=== PATIENT | female | born 1995 ===

== ENCOUNTER → 2020-08-01 08:42 | Outpatient (BNVA) | payer OTHER, SELFPAY | PROVIDERS: PCP Internal Medicine; Visit Provider Nurse Practitioner | DX: R19.7 Diarrhea, unspecified (principal); R10.9 Unspecified abdominal pain; Z34.90 Encounter for supervision of normal pregnancy, unspecified, unspecified trimester | CPT/HCPCS: 99212 ==

== ENCOUNTER → 2021-02-17 09:15 | Outpatient (BNVA) | payer OTHER, SELFPAY | PROVIDERS: PCP Internal Medicine; Visit Provider Nurse Practitioner ==

== ENCOUNTER 2021-10-13 14:56 | Outpatient (REF) | payer OTHER, SELFPAY ==
[2021-10-13 16:37] LABS: Eosinophils Absolute Auto 0.1 X10*3/uL (0.0-0.4); Eosinophils Percent Auto 0.6 % (0-4); Hemoglobin 12.7 g/dl (12.0-16.0); Imm Gran Abs Auto 0.02 X10*3/uL (0.00-0.03); Imm Gran Pct Auto 0.2 % (0.0-0.4); MANUAL DIFF FLAG SCAN; Monocytes Absolute Auto 0.6 X10*3/uL (0.1-1.2); PLT CLUMP 1; Red Cell Distribution Width 14.6 % (11.0-16.0); SCAN SMEAR FLAG 1
[2021-10-13 16:39] LABS: Basophils Percent Auto 0.1 % (0-2); Hematocrit 40.8 % (37.0-47.0); Lymphocytes Absolute Auto 2.8 X10*3/uL (1.2-4.9); Mean Corpuscular HGB Conc 31.1 g/dl (31.0-35.0); Mean Corpuscular Hemoglobin 26.5 pg (27.0-33.0); Monocytes Percent Auto 7.6 % (2-11); Neutrophils Absolute Auto 4.6 x10*3/uL (2.0-8.3); Neutrophils Percent Auto 56.5 % (45-73)
[2021-10-13 16:43] LABS: PLT ABN DIST 1
[2021-10-13 16:47] LABS: Alanine Aminotransferase 21 U/L (0-31); Albumin Level 3.8 g/dL (3.5-5.0); Alkaline Phosphatase 88 U/L (39-117); Anion Gap 11 (12-20); Aspartate Amino Transferase 16 U/L (5-31); Bilirubin Total 0.5 mg/dL (0.0-1.0); Blood Urea Nitrogen 11 mg/dL (9-16); Calcium 9.1 mg/dL (8.4-10.2); Carbon Dioxide 24 mmol/L (22-29); Chloride 107 mmol/L (96-108); Cholesterol 158 mg/dL; Estimated Glomerular Filt Rate > 60; Glucose Random 91 mg/dL (60-115); HDL Cholesterol 44 mg/dL; LDL Cholesterol Calculated 72 mg/dl; Magnesium 1.8 mg/dL (1.6-2.6); Potassium 4.2 mmol/L (3.3-5.1); Sodium 138 mmol/L (135-145); Total Protein 6.6 g/dL (6.5-8.0); Triglycerides 210 mg/dL
[2021-10-13 16:57] LABS: White Blood Count 8.1 X10*3/uL (4.8-10.8)
[2021-10-13 16:58] LABS: SLIDE REVIEW VERIFIED
[2021-10-13 17:12] LABS: Free T4 (Free Thyroxine) 0.93 ng/dL (0.71-1.85); Thyroid Stimulating Hormone 2.64 uIU/mL (0.32-4.0); Vitamin D 25-OH Total 20.1 ng/mL (>30)
[2021-10-13 17:18] LABS: Folate 14.4 ng/mL (> or = 4.0); Vitamin B12 326 pg/mL (200-900)
[2021-10-16 04:14] LABS: HBS Num1 50.52 mIU/mL (0-7.99); HBsAGNum1 0.27 S/CO (0.00-0.99); HIV AB/AG Nonreactive (Nonreactive); HIV Num 1 0.13 S/CO (0.00-0.99); Hepatitis B Core Antibody Nonreactive (Nonreactive); Hepatitis B Surface Antigen Negative (Negative); ~Hepatitis B Surface Antibody REACTIVE (Nonreactive)
== END 2021-10-13 14:57 | disposition home or self-care (01) ==
LOC: HO.HMGCLDS 14:56
PROVIDERS: Absent Provider Internal Medicine; PCP Internal Medicine; Visit Provider Internal Medicine
DX: Z01.84 Encounter for antibody response examination (principal); Z11.4 Encounter for screening for human immunodeficiency virus [HIV]; R19.7 Diarrhea, unspecified; E78.00 Pure hypercholesterolemia, unspecified; W27.3XXA Contact with needle (sewing), initial encounter
CPT/HCPCS: 36415; 80053; 80061; 82306; 82607; 82746; 83735; 84439; 84443; 85025; 86704; 86706; 87340; 87389

== ENCOUNTER 2023-11-05 08:08 | Outpatient (AMB) | payer OTHER, SELFPAY ==
[2023-11-05 08:15] VITALS: BP 130/82; PULSE 77; O2SAT 98; BMI 50.9
--- NOTE | 2023-11-05 08:15 | MHC.PC.OV ---
Vital Signs 11/05/23 08:15 Height 5 ft 7 in Weight 147.418 kg BMI 50.9 BP 130/82 Blood Pressure Location Lt brachial Position Sitting Pulse 77 Pulse Source Pulse Oximeter Pulse Oximetry (%) 98 Oxygen Delivery Method Room Air Intake Visit Reasons: PE Allergies No Known Allergies Allergy (Verified 11/05/23 08:16) Medication List - Last Reconciled 11/05/23 by Eron Ramsey MD alprazolam 0.25 mg PO DAILY PRN sumatriptan succinate (Imitrex) 50 mg PO QD prn CHRISTIANSON PRN; Tobacco use date assessed: 11/05/23 Dental Screening Dental Screen Date: 11/05/23 Did you have a dental visit in the last 12 months?: Yes Did you have a dental problem in the last 6 months where you did not have access to dental care?: No Was dental information given to patient?: Patient has dentist HPI PE HPI Details 28-year-old morbidly obese female with hypertriglyceridemia asthma generalized anxiety disorder and major depression coming in for physical exam. Last seen in 10/2022. watery stools intermittently seen GI, eat with no schedule, no nausea no vomiting no chest pains no bladder symptoms. [facility] Medical History (Updated 11/05/23 @ 08:51 by Eron Ramsey MD) Diarrhea Obesity Depression Abdominal cramping Surgical History (Updated 11/05/23 @ 08:34 by Eron Ramsey MD) H/O tubal ligation History of ankle surgery Family History (Updated 11/05/23 @ 08:35 by Eron Ramsey MD) Mother IBS (irritable bowel syndrome) Brother IBS (irritable bowel syndrome) Maternal Aunt Colon cancer Father No problems noted. Maternal Grandmother Breast cancer Social History Housing: Apartment Alcohol intake: never Patient Tobacco Use Status: Never used Tobacco e-Cigarette/Vaping Use: Never Used Second Hand Smoke Exposure: No Current occupational status: employed Cognitive needs: No Hearing needs: No Vision needs: No Questionnaire PHQ-9 Over the last 2 weeks, how often have you been bothered by any of the following problems? 1. Little interest or pleasure in doing things: more than half the days 2. Feeling down, depressed, or hopeless: more than half the days 3. Trouble falling or staying asleep, or sleeping too much: more than half the days 4. Feeling tired or having little energy: more than half the days 5. Poor appetite or overeating: several days 6. Feeling bad about yourself - or that you are a failure or have let yourself or your family down: not at all 7. Trouble concentrating on things, such as reading the newspaper or watching television: not at all 8. Moving or speaking so slowly that other people could have noticed. Or the opposite - being so fidgety or restless that you have been moving around a lot more than usual: not at all 9. Thoughts that you would be better off or of hurting yourself in some way: not at all Total score: 9 Depression Screening Interpretation: Positive Depression Screening Done: Yes 59712 - PHQ-9 Billing: Yes Source: Developed by Drs. Eric Goodson, Marjorie Wilcox, Kelvin Sosa and colleagues, with an educational paulino from [employer]. Thrive Questionnaire Date Thrive assessed: 11/05/23 I am a: Patient What is your living situation today?: I have a steady place to live Within the past 12 months, did the food you bought not last and you didn't have the money to get more?: Never true Within the past 12 months, did you worry whether your food would run out before you got money to buy more?: Never true Do you have trouble paying for medicines?: No Do you have trouble getting transportation to medical appointments?: No Do you have trouble paying your heating and electricity bill?: No Do you have trouble taking care of your child, family member or friend?: No Do you have trouble with day-to-day activities such as bathing, preparing meals, shopping, managing finances, etc.?: No Are you currently unemployed and looking for a job?: No Are you interested in more education?: No Currently or been in a relationship where the following occur: No concerns reported THRIVE Score: 0 AUDIT C Alcohol Use Questionnaire (AUDIT-C) 1. How often do you have a drink containing alcohol?: Never 3. How often do you have six or more drinks on one occasion?: Never Total Score: 0 MARIO-7 AMB Questionnaire MARIO-7 Date MARIO - 7 assessed: 11/05/23 Feeling nervous, anxious, or on edge: 0 = Not at all Not being able to stop or control worryin = Not at all Worrying too much about different things: 0 = Not at all Trouble relaxin = Not at all Being so restless that it is hard to sit still: 0 = Not at all Becoming easily annoyed or irritable: 0 = Not at all Feeling afraid as if something awful might happen: 0 = Not at all Total MARIO-7 score (0-4 normal; 5-9 mild; 10-14 moderate; 15-21 severe): 0 Source: Developed by Drs. Eric Goodson, Marjorie Wilcox, Kelvin Sosa and colleagues, with an educational paulino from [employer]. MARIO-7 Assessment Billing MARIO-7 Assessment Tool: MARIO-7 Assessment 85305 Review of Systems Const Denies poor appetite and Denies weakness Eyes Denies no additional complaints ENT Reports Normal hearing present, Denies dizziness, Denies nasal congestion, Denies tinnitus and Denies sore throat Card Denies chest pain, Denies syncope, Denies rapid heart rate and Denies dyspnea Resp Denies cough and Denies dyspnea GI Denies change in stool character, Reports constipation, Denies diarrhea, Denies nausea and Denies vomiting Denies urinary frequency, Denies difficulty voiding and Denies dysuria Neuro Reports Normal hearing present, Denies confusion, Denies dizziness, Denies syncope and Denies weakness Psych Denies confusion Physical exam (Primary Care) Vital Signs: Last Vital Signs Pulse 77 11/05/23 08:15 BP 130/82 11/05/23 08:15 Pulse Ox 98 11/05/23 08:15 Oxygen Delivery Method Room Air 11/05/23 08:15 BMI result Body Mass Index 50.9 Tobacco/Smoking Status: Tobacco use Status Tobacco use date assessed 11/05/23 11/05/23 08:19 Patient Tobacco Use Status Never used Tobacco 11/05/23 08:19 e-Cigarette/Vaping Use Never Used 11/05/23 08:19 PHQ-9: PHQ-9 Score PHQ-9: Total score 9 11/05/23 08:32 Depression Screening Interpretation: Positive Thrive Assessment: Date of Thrive Assessment Date Thrive assessed 11/05/23 11/05/23 08:19 Currently or been in a relationship where the following occur: No concerns reported Const General: No confusion Orientation/consciousness: No confusion HENMT Head: Yes normocephalic Ears: external ears normal and TM's normal bilaterally Face and sinus: Yes normal facial exam Mouth: moist mucous membranes Throat: Yes tonsils normal Eyes Conjunctivae: conjunctivae normal Pupils: Equal, round and reactive pupils present and Pupil accommodation reflex normal Direct Ophthalmoscopy: normal light reflex Neck Neck: No lymphadenopathy Thyroid: Thyroid normal Chest Chest palpation & inspection: normal inspection of the chest Resp Effort & Inspection: normal respiratory effort and no audible wheezes Auscultation: clear to auscultation bilaterally, no crackles, no wheezes and lung sounds not diminished Cardio Rate: regular rate Rhythm: regular rhythm Peripheral pulses: radial pulses present and dorsalis pedis present GI Palpation (GI): no masses Auscultation: normal bowel sounds and normoactive bowel sounds Rectal Exam - Female: deferred Skin General skin exam: no rashes or lesions noted Rashes: no rashes Neuro General: No confusion Cranial nerves: Yes Equal, round and reactive pupils present and Yes Normal hearing present Cognition (Neuro): normal cognition Gait exam (Neuro): Normal gait present Motor exam (neuro): 5/5 motor strength present throughout Deep tendon reflexes (DTR's): Right brachioradialis reflex intensity grade: 2+, Left brachioradialis reflex intensity grade: 2+, Right patellar reflex intensity grade: 2+ and Left patellar reflex intensity grade: 2+ Extrem General: No edema Immunizations Boostrix Tdap 2.5 Lf unit-8 mcg-5 Lf/0.5 mL intramuscular syringe Performing Provider: Eron Ramsey MD [facility] Administered by: Amna Hudson CMA on 11/05/23 08:59 Dose Route Admin Location Dispensed Lot Number Expiration Date [employer] Qualified 0.5 mL IM Left Deltoid 0.5 mL [id number] 12/05/25 47904-273-27 [employer] VIS Given Date VIS Provided VIS Publication Date 11/05/23 Single Vaccine 20 Eligibility Eligibility Date Funding Source Not [facility] Eligible 11/05/23 Private Assessment and Plan Assessment & Plan (1) Annual physical exam: Code(s): Z00.00 - Encounter for general adult medical examination without abnormal findings Plan: Patient is advised to eat healthy, keep well hydrated, keep active and have adequate sleep. (2) Asthma: Code(s): J45.909 - Unspecified asthma, uncomplicated Plan: Stable and not requiring any inhaler (3) Morbid obesity with BMI of 50.0-59.9, adult: Code(s): E66.01 - Morbid (severe) obesity due to excess calories; Z68.43 - Body mass index [BMI] 50.0-59.9, adult Plan: Diet and exercise (4) Major depression: Code(s): F32.9 - Major depressive disorder, single episode, unspecified Plan: Patient has been stable and declined any referral for counseling services (5) Hypertriglyceridemia: Code(s): E78.1 - Pure hyperglyceridemia Plan: Avoid fried foods, chicken skin, eggs, butter margarine, pastries and meat. Be it pork or beef they have a lot of cholesterol LDL goal of less than 130 and triglyceride of less than 150 (6) Migraine: Code(s): G43.909 - Migraine, unspecified, not intractable, without status migrainosus Plan: Continue with medication as needed (7) Bilateral hand numbness: Code(s): R20.0 - Anesthesia of skin Plan: Discussed about the mechanism of the numbness and declined any testing for now (8) IBS (irritable bowel syndrome): Code(s): K58.9 - Irritable bowel syndrome without diarrhea Plan: Patient has been referred to Gastroenterology and discussed about trial of eliminating dairy products. Discussed about eating properly discussed about eating regularly with healthy foods. Keeping well hydrated Orders: Orders Comprehensive Met. Panel Today E66.01 - Morbid (severe) obesity due to excess calories, Z68.43 - Body mass index [BMI] 50.0-59.9, adult Free T4 (Free Thyroxine) Today E66.01 - Morbid (severe) obesity due to excess calories, Z68.43 - Body mass index [BMI] 50.0-59.9, adult Thyroid Stimulating Hormone Today E66.01 - Morbid (severe) obesity due to excess calories, Z68.43 - Body mass index [BMI] 50.0-59.9, adult UA w Microscopic Today E66.01 - Morbid (severe) obesity due to excess calories, Z68.43 - Body mass index [BMI] 50.0-59.9, adult Hemoglobin A1c Today E66.01 - Morbid (severe) obesity due to excess calories, Z68.43 - Body mass index [BMI] 50.0-59.9, adult Complete Blood Count Auto Diff Today E66.01 - Morbid (severe) obesity due to excess calories, Z68.43 - Body mass index [BMI] 50.0-59.9, adult Vitamin B12 and Folate Today E66.01 - Morbid (severe) obesity due to excess calories, Z68.43 - Body mass index [BMI] 50.0-59.9, adult Lipid Panel Today E66.01 - Morbid (severe) obesity due to excess calories, E78.00 - Pure hypercholesterolemia, unspecified, Z68.43 - Body mass index [BMI] 50.0-59.9, adult Vitamin D 25-OH Total Today E66.01 - Morbid (severe) obesity due to excess calories, Z68.43 - Body mass index [BMI] 50.0-59.9, adult TDaP Immunization Today Z23 - Encounter for immunization Referrals Gastroenterology Referral K58.9 - Irritable bowel syndrome without diarrhea Medications: New Boostrix Tdap (diphth,pertus(acell),tetanus) 0.5 mL IM ONCE 0.5 mL 0RF NS Z23 - Encounter for immunization Coding Level of Care Code Est Pt Prev Care 18-39y([id number]) Diagnoses Annual physical exam Z00.00 Asthma J45.909 Morbid obesity with BMI of 50.0-59.9, adult E66.01; Z68.43 Major depression F32.9 Hypertriglyceridemia E78.1 Migraine G43.909 Bilateral hand numbness R20.0 IBS (irritable bowel syndrome) K58.9 Additional Codes MARIO-7 Assessment Billing - MARIO-7 Assessment Tool: MARIO-7 Assessment 49863 ([id number])
== END 2023-11-05 09:05 | disposition home or self-care (01) ==
PROVIDERS: PCP Internal Medicine; Visit Provider Internal Medicine
DX: Z23 Encounter for immunization (principal); Z00.00 Encounter for general adult medical examination without abnormal findings; J45.909 Unspecified asthma, uncomplicated; E66.01 Morbid (severe) obesity due to excess calories; Z68.43 Body mass index [BMI] 50.0-59.9, adult; F32.9 Major depressive disorder, single episode, unspecified; E78.1 Pure hyperglyceridemia; G43.909 Migraine, unspecified, not intractable, without status migrainosus; R20.0 Anesthesia of skin; K58.9 Irritable bowel syndrome, unspecified
CPT/HCPCS: 90471; 90715; 99395

== ENCOUNTER 2024-03-05 08:09 | Outpatient (REF) | payer OTHER, SELFPAY ==
[2024-03-05 08:31] LABS: MANUAL DIFF FLAG NO
[2024-03-05 08:51] LABS: Basophils Percent Auto 0.4 % (0-2); Eosinophils Absolute Auto 0.1 X10*3/uL (0.0-0.4); Eosinophils Percent Auto 0.7 % (0-4); Estimated Average Glucose 108 mg/dL; Hematocrit 36.9 % (37.0-47.0); Hemoglobin 10.9 g/dl (12.0-16.0); Hemoglobin A1C 100.5512 umol/L; Hemoglobin A1c % 5.4 % (<6.0); Imm Gran Abs Auto 0.02 X10*3/uL (0.00-0.03); Imm Gran Pct Auto 0.3 % (0.0-0.4); Lymphocytes Absolute Auto 2.3 X10*3/uL (1.2-4.9); Lymphocytes Percent Auto 30.9 % (20-40); Mean Corpuscular HGB Conc 29.5 g/dl (31.0-35.0); Mean Corpuscular Hemoglobin 21.6 pg (27.0-33.0); Mean Corpuscular Volume 73.1 fL (80.0-98.0); Monocytes Absolute Auto 0.7 X10*3/uL (0.1-1.2); Neutrophils Absolute Auto 4.3 x10*3/uL (2.0-8.3); Neutrophils Percent Auto 57.7 % (45-73); Platelet Count 388 X10*3/uL (160-400); Red Blood Count 5.05 X10*6/uL (4.20-5.50); Total Hemoglobin (HGBA1C) 2850.5006 umol/L; White Blood Count 7.4 X10*3/uL (4.8-10.8)
[2024-03-05 09:14] LABS: Appearance Urine Cloudy; Color Urine Yellow; Glucose Urine UA Negative (Negative); Leukocyte Esterase Urine Large (3+) (Negative); Nitrite Urine Negative (Negative); PH 5.5 (5.0-9.0); Specific Gravity - Urine 1.025 (1.005-1.025); UMIC TRIGGER UA YES; Urine Blood Negative (Negative); Urine Ketones Negative (Negative); Urine Protein Trace mg/dL (Neg-Trace)
[2024-03-05 09:20] LABS: Bacteria Urine 4+ (None Seen); Hyaline Casts Urine 0-2 /LPF (0-2); RBC Urine 0-2 /HPF (0-2); Squamous Epithelial Cell Urine >20 /HPF (0-2); WBC Urine >50 /HPF (0-5)
[2024-03-05 09:22] LABS: Alanine Aminotransferase 21 U/L (0-31); Albumin Level 3.5 g/dL (3.5-5.0); Alkaline Phosphatase 78 U/L (39-117); Anion Gap 8 (12-20); Aspartate Amino Transferase 19 U/L (5-31); Bilirubin Total 0.4 mg/dL (0.0-1.0); Blood Urea Nitrogen 11 mg/dL (9-16); Calcium 8.6 mg/dL (8.4-10.2); Carbon Dioxide 24 mmol/L (22-29); Chloride 111 mmol/L (96-108); Cholesterol 152 mg/dL (<200); Estimated Glomerular Filt Rate > 60; Glucose Random 95 mg/dL (60-115); HDL Cholesterol 44 mg/dL (>40); LDL Cholesterol Calculated 88 mg/dL (<100); Potassium 4.3 mmol/L (3.3-5.1); Sodium 139 mmol/L (135-145); Total Protein 6.4 g/dL (6.5-8.0); Triglycerides 102 mg/dL (<150)
[2024-03-05 09:40] LABS: Free T4 (Free Thyroxine) 0.98 ng/dL (0.71-1.85); Thyroid Stimulating Hormone 2.83 uIU/mL (0.32-4.0)
[2024-03-05 09:46] LABS: Folate 12.3 ng/mL (> or = 4.0); Vitamin B12 344 pg/mL (200-900)
== END 2024-03-05 08:10 | disposition home or self-care (01) ==
LOC: HO.LAB 08:09
PROVIDERS: PCP Internal Medicine; Visit Provider Internal Medicine
DX: E66.01 Morbid (severe) obesity due to excess calories (principal); Z68.43 Body mass index [BMI] 50.0-59.9, adult; E78.00 Pure hypercholesterolemia, unspecified
CPT/HCPCS: 36415; 80053; 80061; 81001; 82306; 82607; 82746; 83036; 84439; 84443; 85025

== ENCOUNTER 2024-03-11 09:11 | Outpatient (AMB) | payer OTHER, SELFPAY ==
[2024-03-11 09:37] VITALS: BP 132/90; PULSE 80; O2SAT 98; BMI 52.1
--- NOTE | 2024-03-11 09:37 | A.OFFPC_ITS ---
Vital Signs 3 03/11/24 09:37 Height 5 ft 7 in Weight 333 lb BMI 52.1 BP 132/90 H Blood Pressure Location Lt brachial Position Sitting Pulse 80 Pulse Source Pulse Oximeter Pulse Oximetry (%) 98 Oxygen Delivery Method Room Air Intake Visit Reasons: Morbid Obesity Allergies No Known Allergies Allergy (Verified 03/11/24 09:38) Medication List - Last Reconciled 03/11/24 by Eron Ramsey MD sulfamethoxazole-trimethoprim 800-160 mg (Bactrim DS) 1 tab PO BID sumatriptan succinate (Imitrex) 50 mg PO QD prn CHRISTIANSON PRN; Tobacco use date assessed: 11/05/23 Dental Screening Dental Screen Date: 11/05/23 HPI Morbid Obesity 2 HPI0 Details 28-year-old morbidly obese female with a sthma major depression hypercholesterolemia migraine coming in for follow-up. Last seen in October 2023. LMP,10 mid month 7 days [employer] WORK[employer] 12/2023 . left leg fall 2 months ago had a bruise but this has turned into a mass PFSH Medical History (Updated 03/11/24 @ 10:23 by Eron Ramsey MD) Diarrhea Obesity Depression Abdominal cramping Surgical History (Updated 11/05/23 @ 08:34 by Eron Ramsey MD) H/O tubal ligation History of ankle surgery Family History (Updated 11/05/23 @ 08:35 by Eron Ramsey MD) Mother IBS (irritable bowel syndrome) Brother IBS (irritable bowel syndrome) Maternal Aunt Colon cancer Father No problems noted. Maternal Grandmother Breast cancer Social History Housing: Apartment Alcohol intake: never Patient Tobacco Use Status: Never used Tobacco Tobacco use type: Cigarette e-Cigarette/Vaping Use: Never Used Second Hand Smoke Exposure: No Current occupational status: employed Cognitive needs: No Hearing needs: No Vision needs: No Questionnaire PHQ-9 Over the last 2 weeks, how often have you been bothered by any of the following problems? 1. Little interest or pleasure in doing things: more than half the days 2. Feeling down, depressed, or hopeless: more than half the days 3. Trouble falling or staying asleep, or sleeping too much: more than half the days 4. Feeling tired or having little energy: more than half the days 5. Poor appetite or overeating: several days 6. Feeling bad about yourself - or that you are a failure or have let yourself or your family down: not at all 7. Trouble concentrating on things, such as reading the newspaper or watching television: not at all 8. Moving or speaking so slowly that other people could have noticed. Or the opposite - being so fidgety or restless that you have been moving around a lot more than usual: not at all 9. Thoughts that you would be better off or of hurting yourself in some way: not at all Total score: 9 Depression Screening Interpretation: Positive Depression Screening Done: Yes 34657 - PHQ-9 Billing: Yes Source: Developed by Drs. Eric Goodson, Marjorie Wilcox, Kelvin Sosa and colleagues, with an educational paulino from [employer]. Thrive Questionnaire Date Thrive assessed: 11/05/23 AUDIT C Alcohol Use Questionnaire (AUDIT-C) 1. How often do you have a drink containing alcohol?: Never 3. How often do you have six or more drinks on one occasion?: Never Total Score: 0 MARIO-7 AMB Questionnaire MARIO-7 Date MARIO - 7 assessed: 11/05/23 Source: Developed by Drs. Eric Goodson, Marjorie Wilcox, Kelvin Sosa and colleagues, with an educational paulino from [employer]. Physical exam (Primary Care) Vital Signs: Last Vital Signs Pulse 80 03/11/24 09:37 BP 132/90 H 03/11/24 09:37 Pulse Ox 98 03/11/24 09:37 Oxygen Delivery Method Room Air 03/11/24 09:37 BMI result Body Mass Index 52.1 Tobacco/Smoking Status: Tobacco use Status Tobacco use date assessed 11/05/23 03/11/24 09:38 Patient Tobacco Use Status Never used Tobacco 03/11/24 09:38 Tobacco use type Cigarette 03/11/24 09:38 e-Cigarette/Vaping Use Never Used 03/11/24 09:38 PHQ-9: PHQ-9 Score PHQ-9: Total score 9 03/11/24 09:52 Depression Screening Interpretation: Positive Thrive Assessment: Date of Thrive Assessment Date Thrive assessed 11/05/23 03/11/24 09:38 Const General: alert; No acute distress Eyes Conjunctivae: conjunctivae normal Resp Auscultation: clear to auscultation bilaterally Cardio Rate: regular rate Rhythm: regular rhythm GI Inspection: Yes normal to inspection Extrem General: Yes normal to inspection and No edema Ankle/foot/toe images: 2 1. 2 x 1 cm mass Office Procedures Flu Questionnaire Does the patient have a severe egg allergy?: No Does the patient have severe life threatening allergies?: No Does the patient have a fever or illness today?: No Has the patient ever had Guillain-[place] Syndrome?: No Has the patient ever had any past reaction to a flu shot?: No Immunizations Fluarix Triv [id number] (PF) 45 mcg (15 mcg x 3)/0.5 mL IM syringe Performing Provider: Erno Ramsey MD Performing Location: [facility] [place] [place] [facility] Administered by: Amna Hudson CMA on 03/11/24 09:52 2 Dose Route Admin Location Dispensed Lot Number Expiration Date [facility] Video P[employer] [place] 0.5 mL IM Left Deltoid 0.5 mL [id number] 10/26/24 [id number] [employer]Alerts 2 VIS Given Date VIS Provided VIS Publication Date 03/11/24 Single Vaccine 20 Eligibility Eligibility Date Funding Source Not [facility] Eligible 03/11/24 Private Coding Level of Care Code Est Pt Level 4 (54042) Diagnoses Morbid obesity with BMI of 50.0-59.9, adult E66.01; Z68.43 Vitamin D deficiency E55.9 Anemia, unspecified type D64.9 Anemia type: unspecified type Generalized anxiety disorder F41.1 Mass of left lower leg R22.42 Major depression F32.9 Additional Codes PHQ-9 - 85504 - PHQ-9 Billing: Yes ([id number]) Assessment & Plan Assessment & Plan (1) Morbid obesity with BMI of 50.0-59.9, adult: Code(s): E66.01 - Morbid (severe) obesity due to excess calories; Z68.43 - Body mass index [BMI] 50.0-59.9, adult Category: Medical Plan: Diet and exercise. Patient is asking for the medication to help with with weight. If medication is declined will refer to bariatric surgeons medical weight management. (2) Vitamin D deficiency: Code(s): E55.9 - Vitamin D deficiency, unspecified Category: Medical Plan: Vitamin-D 2101-4412 units once a day (3) Anemia: Code(s): D64.9 - Anemia, unspecified Category: Medical Qualifiers: Anemia type: unspecified type Qualified Code(s): D64.9 - Anemia, unspecified Plan: Advised patient to work it up. Patient does have menorrhagia and needs to follow-up with gynecology. (4) Generalized anxiety disorder: Code(s): F41.1 - Generalized anxiety disorder Category: Medical Plan: Continue with present medication as needed discussed about counseling (5) Mass of left lower leg: Code(s): R22.42 - Localized swelling, mass and lump, left lower limb Category: Medical Plan: will do US , reassurance (6) Major depression: Code(s): F32.9 - Major depressive disorder, single episode, unspecified Category: Medical Plan: Referral for outpatient psychiatric management. Orders: Orders 2 Influenza [id number] Immunization Today Z23 - Encounter for immunization Ferritin Today D64.9 - Anemia, unspecified Complete Blood Count Auto Diff Today D64.9 - Anemia, unspecified IRON PROFILE Today D64.9 - Anemia, unspecified Reticulocyte Count Today D64.9 - Anemia, unspecified US extremity nonvascular tabor Today R22.42 - Localized swelling, mass and lump, left lower limb Referrals 2 Psychiatry Outpatient Consultation Service F32.9 - Major depressive disorder, single episode, unspecified Medications: New 2 semaglutide (weight loss) (Dwain) administer weeks 1 through 4 of therapy 0.25 mg (0.5 mL) subcut QWEEK 2 mL 3RF E66.01 - Morbid (severe) obesity due to excess calories, Z68.43 - Body mass index [BMI] 50.0-59.9, adult
== END 2024-03-11 10:30 | disposition home or self-care (01) ==
PROVIDERS: PCP Internal Medicine; Visit Provider Internal Medicine
DX: E66.01 Morbid (severe) obesity due to excess calories (principal); Z68.43 Body mass index [BMI] 50.0-59.9, adult; E55.9 Vitamin D deficiency, unspecified; D64.9 Anemia, unspecified; F41.1 Generalized anxiety disorder; R22.42 Localized swelling, mass and lump, left lower limb; F32.9 Major depressive disorder, single episode, unspecified; Z23 Encounter for immunization

== ENCOUNTER → 2024-03-11 09:11 | Outpatient (BNVA) | payer OTHER, SELFPAY | PROVIDERS: PCP Internal Medicine; Visit Provider Internal Medicine | DX: Z23 Encounter for immunization (principal); E66.01 Morbid (severe) obesity due to excess calories; Z68.43 Body mass index [BMI] 50.0-59.9, adult; E55.9 Vitamin D deficiency, unspecified; D64.9 Anemia, unspecified; F41.1 Generalized anxiety disorder; R22.42 Localized swelling, mass and lump, left lower limb; F32.9 Major depressive disorder, single episode, unspecified; Z71.3 Dietary counseling and surveillance | CPT/HCPCS: 90471; 90656; 96127; 99212 ==

== ENCOUNTER 2024-03-12 11:39 | Outpatient (REF) | payer OTHER, SELFPAY ==
[2024-03-12 12:02] LABS: MANUAL DIFF FLAG NO
[2024-03-12 12:16] LABS: Basophils Percent Auto 0.4 % (0-2); Eosinophils Absolute Auto 0.1 X10*3/uL (0.0-0.4); Eosinophils Percent Auto 0.6 % (0-4); Hemoglobin 10.6 g/dl (12.0-16.0); Imm Gran Abs Auto 0.02 X10*3/uL (0.00-0.03); Imm Gran Pct Auto 0.2 % (0.0-0.4); Immature Retic Fraction 25.5 % (3.0-15.9); Lymphocytes Absolute Auto 2.8 X10*3/uL (1.2-4.9); Lymphocytes Percent Auto 33.8 % (20-40); Mean Corpuscular HGB Conc 30.3 g/dl (31.0-35.0); Mean Corpuscular Hemoglobin 22.1 pg (27.0-33.0); Mean Corpuscular Volume 72.9 fL (80.0-98.0); Mean Platelet Volume 10.2 fL (9.4-12.3); Monocytes Absolute Auto 0.9 X10*3/uL (0.1-1.2); Monocytes Percent Auto 11.1 % (2-11); Neutrophils Absolute Auto 4.5 x10*3/uL (2.0-8.3); Neutrophils Percent Auto 53.9 % (45-73); Platelet Count 355 X10*3/uL (160-400); Red Cell Distribution Width 18.7 % (11.0-16.0); Retic HGB Equivalent 20.1 pg (30.0-35.0); Reticulocyte Percent 1.8 % (0.5-1.8); Reticulocytes Absolute 0.086 X10*6/uL (0.026-0.095); White Blood Count 8.3 X10*3/uL (4.8-10.8)
[2024-03-12 12:46] LABS: Iron 27 mcg/dL (30-160); Percent Iron Saturation 8 % (15-50); Total Iron Binding Capacity 339 mcg/dL (228-428); Unsaturated Iron Binding 312 ug/dL
[2024-03-12 13:01] LABS: Ferritin 6 ng/mL (10-122)
== END 2024-03-12 11:40 | disposition home or self-care (01) ==
LOC: HO.LAB 11:39
PROVIDERS: PCP Internal Medicine; Visit Provider Internal Medicine
DX: D64.9 Anemia, unspecified (principal)
CPT/HCPCS: 36415; 82728; 83540; 85025; 85045

== ENCOUNTER 2024-03-17 14:25 | Outpatient (REF) | payer OTHER, SELFPAY ==
--- NOTE | ~2024-03-17 | US_ITS ---
EXAMINATION: LEFT LOWER EXTREMITY ULTRASOUND CLINICAL INFORMATION: Localized mass/swelling left distal calf. Patient fell a few months ago with a bruise which eventually became a lump. COMPARISON: None available. TECHNIQUE: High frequency linear ultrasound transducer was used to examine the area of clinical concern in the left distal calf medially FINDINGS: There is a hypoechoic mass 1.4 mm below the skin surface measuring 6 x 5 x 6 mm with peripheral vascularity. US/US extremity nonvascular tabor IMPRESSION: Hypoechoic mass in the area of clinical concern. This could represent a small hematoma. If this does not resolve, MRI may be useful for further evaluation. Electronically signed by: Gregory Harmon MD 03/31/2024 01:19 AM LIZZY SALMERON
== END 2024-03-17 14:26 | disposition home or self-care (01) ==
LOC: HO.US 14:25
PROVIDERS: PCP Internal Medicine; Visit Provider Internal Medicine
DX: R22.42 Localized swelling, mass and lump, left lower limb (principal)
CPT/HCPCS: 76882

== ENCOUNTER 2024-07-06 09:26 | Outpatient (AMB) | payer OTHER, SELFPAY ==
--- NOTE | 2024-07-06 09:27 | A.OFFPC_ITS ---
Vital Signs 07/06/24 09:28 07/06/24 09:46 Height 5 ft 7 in Weight 341 lb BMI 53.4 BP 122/88 126/86 Blood Pressure Location Lt brachial Lt brachial Position Sitting Pulse 81 Pulse Source Pulse Oximeter Pulse Oximetry (%) 98 Oxygen Delivery Method Room Air Intake Visit Reasons: anxiety, anemia Allergies No Known Allergies Allergy (Verified 07/06/24 09:29) Tobacco use date assessed: 07/06/24 Dental Screening Dental Screen Date: 07/06/24 Did you have a dental visit in the last 12 months?: Yes Did you have a dental problem in the last 6 months where you did not have access to dental care?: No Was dental information given to patient?: Patient has dentist [facility] Medical History (Updated 07/06/24 @ 09:40 by Eron Ramsey MD) Diarrhea Obesity Depression Abdominal cramping Surgical History (Updated 11/05/23 @ 08:34 by Eron Ramsey MD) H/O tubal ligation History of ankle surgery Family History (Updated 11/05/23 @ 08:35 by Eron Ramsey MD) Mother IBS (irritable bowel syndrome) Brother IBS (irritable bowel syndrome) Maternal Aunt Colon cancer Father No problems noted. Maternal Grandmother Breast cancer Social History Housing: Apartment Alcohol intake: never Patient Tobacco Use Status: Never used Tobacco Tobacco use type: Cigarette e-Cigarette/Vaping Use: Never Used Second Hand Smoke Exposure: No Current occupational status: employed Cognitive needs: No Hearing needs: No Vision needs: No Questionnaire PHQ-9 Over the last 2 weeks, how often have you been bothered by any of the following problems? 1. Little interest or pleasure in doing things: more than half the days 2. Feeling down, depressed, or hopeless: more than half the days 3. Trouble falling or staying asleep, or sleeping too much: more than half the days 4. Feeling tired or having little energy: more than half the days 5. Poor appetite or overeating: several days 6. Feeling bad about yourself - or that you are a failure or have let yourself or your family down: not at all 7. Trouble concentrating on things, such as reading the newspaper or watching television: not at all 8. Moving or speaking so slowly that other people could have noticed. Or the opposite - being so fidgety or restless that you have been moving around a lot more than usual: not at all 9. Thoughts that you would be better off or of hurting yourself in some way: not at all Total score: 9 Depression Screening Interpretation: Positive Depression Screening Done: Yes 62134 - PHQ-9 Billing: Yes Source: Developed by Drs. Eric Goodson, Marjorie Wilcox, Kelvin Sosa and colleagues, with an educational paulino from [employer]. Thrive Questionnaire Date Thrive assessed: 07/06/24 I am a: Patient What is your living situation today?: I have a steady place to live Within the past 12 months, did the food you bought not last and you didn't have the money to get more?: Never true Within the past 12 months, did you worry whether your food would run out before you got money to buy more?: Never true Do you have trouble paying for medicines?: No Do you have trouble getting transportation to medical appointments?: No Do you have trouble paying your heating and electricity bill?: No Do you have trouble taking care of your child, family member or friend?: No Do you have trouble with day-to-day activities such as bathing, preparing meals, shopping, managing finances, etc.?: No Are you currently unemployed and looking for a job?: No Are you interested in more education?: No Currently or been in a relationship where the following occur: No concerns reported THRIVE Score: 0 AUDIT C Alcohol Use Questionnaire (AUDIT-C) 1. How often do you have a drink containing alcohol?: Never 3. How often do you have six or more drinks on one occasion?: Never Total Score: 0 MARIO-7 AMB Questionnaire MARIO-7 Date MARIO - 7 assessed: 07/06/24 Feeling nervous, anxious, or on edge: 0 = Not at all Not being able to stop or control worryin = Not at all Worrying too much about different things: 0 = Not at all Trouble relaxin = Not at all Being so restless that it is hard to sit still: 0 = Not at all Becoming easily annoyed or irritable: 0 = Not at all Feeling afraid as if something awful might happen: 0 = Not at all Total MARIO-7 score (0-4 normal; 5-9 mild; 10-14 moderate; 15-21 severe): 0 Source: Developed by Drs. Eric Goodson, Marjorie Wilcox, Kelvin Sosa and colleagues, with an educational paulino from [employer]. Physical exam (Primary Care) Vital Signs: Last Vital Signs Pulse 81 07/06/24 09:28 BP 122/88 07/06/24 09:28 Pulse Ox 98 07/06/24 09:28 Oxygen Delivery Method Room Air 07/06/24 09:28 BMI result Body Mass Index 53.4 Tobacco/Smoking Status: Tobacco use Status Tobacco use date assessed 07/06/24 07/06/24 09:38 Patient Tobacco Use Status Never used Tobacco 07/06/24 09:38 Tobacco use type Cigarette 07/06/24 09:38 e-Cigarette/Vaping Use Never Used 07/06/24 09:38 PHQ-9: PHQ-9 Score PHQ-9: Total score 9 07/06/24 09:38 Depression Screening Interpretation: Positive Thrive Assessment: Date of Thrive Assessment Date Thrive assessed 07/06/24 07/06/24 09:38 Currently or been in a relationship where the following occur: No concerns reported Const General: alert; No acute distress Eyes Conjunctivae: conjunctivae normal Resp Auscultation: clear to auscultation bilaterally Cardio Rate: regular rate Rhythm: regular rhythm GI Inspection: Yes normal to inspection Extrem General: Yes normal to inspection and No edema Coding Level of Care Code Est Pt Level 4 (72177) Diagnoses Asthma J45.909 Migraine G43.909 Morbid obesity with BMI of 50.0-59.9, adult E66.01; Z68.43 Iron deficiency anemia D50.9 Pseudotumor cerebri G93.2 Additional Codes PHQ-9 - 70581 - PHQ-9 Billing: Yes ([id number]) Assessment & Plan Assessment & Plan (1) Asthma: Code(s): J45.909 - Unspecified asthma, uncomplicated Category: Medical Plan: Stable (2) Migraine: Code(s): G43.909 - Migraine, unspecified, not intractable, without status migrainosus Category: Medical Plan: Concern about the pseudotumor cerebri and has been referred to Neurology (3) Morbid obesity with BMI of 50.0-59.9, adult: Code(s): E66.01 - Morbid (severe) obesity due to excess calories; Z68.43 - Body mass index [BMI] 50.0-59.9, adult Category: Medical (4) Iron deficiency anemia: Code(s): D50.9 - Iron deficiency anemia, unspecified Category: Medical Plan: Patient has been prescribed the wegovy. (5) Pseudotumor cerebri: Code(s): G93.2 - Benign intracranial hypertension Category: Medical Plan: Concern about the headaches and has been referred to Neurology Plan History of Present Illness The patient is a 29-year-old female presenting with follow-up for multiple chr onic conditions, including asthma, which is well-managed with infrequent use of albuterol. Her recent influenza exacerbated asthma symptoms. A diagnosis of pseudotumor cerebri necessitates a neurology referral, with recent findings including hypertensive retinopathy addressed by an kindergartner. Dietary counseling focused on sodium reduction and weight management has been undertaken. She experiences persistent migraines despite dietary interventions and continues to take iron supplementation for iron deficiency anemia. Laboratory evaluations show low hemoglobin levels indicative of persistent anemia, without secondary thrombocytopenia or leukopenia. Vitamin D deficiency has been identified, with supplementation initiated. Blood glucose regulation tests show no current evidence of diabetes. Imaging of the lower leg revealed a minor hematoma, with MRI considered for further intervention, as needed. Health Maintenance - Advised on sodium intake management - Continued use of iron supplements for iron deficiency anemia - Initiation of vitamin D supplementation (2000 IU daily) - Counseling on dietary triggers for migraine management - Weight management referral for evaluation of Wegovy therapy - Referral to neurology for pseudotumor cerebri management Social History - Reports stable blood pressure - Managed asthma with infrequent albuterol use - Adjusted diet to reduce sodium and sugar for retinopathy - Initiated weight management program, with insurance issues around medication Review of Systems - Neurological: Reports frequent migraines (two to three times per week) - Respiratory: Denies issues with breathing due to asthma, except when ill - Hematologic: Denies excessive bleeding or bruising - Musculoskeletal: Reports slow-healing cuts - Endocrine: Denies symptoms of diabetes Physical Exam Results - Labs: Hemoglobin 10.6 g/dL, MCV 72.9 fL, LDL 88 mg/dL, Vitamin D 19 ng/mL, Fasting glucose 95 mg/dL, Hemoglobin A1c 5.4% - Imaging: Ultrasound of the left lower leg indicates small hematoma; recommended MRI if unresolved Plan Management of the patient's conditions includes supplementation for iron deficiency anemia and vitamin D deficiency. Dietary adjustments for sodium and migraine triggers are in place, with vitamin D supplementation to rectify deficiency. Referral to neurology addresses her pseudotumor cerebri, while weight management referrals are contingent upon insurance. Monitoring migraines will continue with dietary advice, and we will consider intervention for the leg hematoma based on symptoms. Regular lab follow-up for anemia assessment is planned before the neurology consultation. Patient was informed and verbally consented to the use of an ambient scribe for clinic note documentation during this visit. Discussion Notes I discussed with the patient the management of her multiple chronic conditions, emphasizing the importance of continued iron and vitamin D supplementation. We examined strategies for addressing her hypertensive retinopathy with dietary sodium reduction and potential weight management with Wegovy, subject to insurance coverage. I elaborated on the risks and benefits of dietary modifications for migraine prevention and referred her for neurology assessment for pseudotumor cerebri. It was agreed that we will follow up on her leg hematoma conservatively and consider an MRI if there is no improvement. The importance of regular blood tests to monitor the effectiveness of her anemia management prior to neurology consulting was stressed. Patient Instructions - Continue iron supplements for anemia as advised - Begin vitamin D supplementation, 2000 IU per day - Follow dietary modifications, focusing on sodium reduction - Maintain a diary to identify dietary triggers for migraines - Schedule follow-up blood work prior to neurology appointment - Contact the office if new symptoms arise or current symptoms worsen Orders: Orders Comprehensive Met. Panel Today D50.9 - Iron deficiency anemia, unspecified Ferritin Today D50.9 - Iron deficiency anemia, unspecified Reticulocyte Count Today D50.9 - Iron deficiency anemia, unspecified Complete Blood Count Auto Diff Today D50.9 - Iron deficiency anemia, unspec ified IRON PROFILE Today D50.9 - Iron deficiency anemia, unspecified Hemoglobin A1c Today D50.9 - Iron deficiency anemia, unspecified Thyroid Stimulating Hormone Today D50.9 - Iron deficiency anemia, unspecified Vitamin B12 and Folate Today D50.9 - Iron deficiency anemia, unspecified Referrals Medical Weight Management Referral E66.01 - Morbid (severe) obesity due to excess calories, Z68.43 - Body mass index [BMI] 50.0-59.9, adult Medications: New cholecalciferol (vitamin D3) 50 mcg PO DAILY 90 days 90 caps 3RF E55.9 - Vitamin D deficiency, unspecified
[2024-07-06 09:28] VITALS: BP 122/88; PULSE 81; O2SAT 98; BMI 53.4
[2024-07-06 09:46] VITALS: BP 126/86
--- OUTSIDE RECORDS SUMMARY | 2024-07-06 10:12 | XMS_ITS | Clinical Summary ---
Author Organization [facility] ity Address [address] [place] [address] Care Team Providers Care Resident Caregiver Name Role Phone Unavailable Primary Care Provider Unavailabl e Social History Tobacco Use Types Packs/Day Years Used Date Smoking Tobacco: Never Assessed Comments Unknown Sex and Gender Information Value Date Recorded Sex Assigned at Not on file Legal Sex Female 4:33 AM EST Gender Identity Not on file Sexual Orientation Not on file Plan of Treatment Health Maintenance Due Date Last Done Comments DTaP,Tdap,and Td Vaccines (1 - Tdap) 2016 Hepatitis B Vaccines (1 of 3 - 19+ 3-dose series) 2016 Cervical Cancer Screening: P ap Smear 2018 COVID-19 Vaccine ( - 2023-2 5 season) 2023 Influenza Vaccine (#1) 2023 HIB Vaccines Aged Out No longer eligi ble based on patient's age to complete this topic HPV Vaccines Aged Out No longer eligi ble based on patient's age to complete this topic Hepatitis A Vaccines Aged Out No long er eligible based on patient's age to complete this topic IPV Vaccines Aged Out No longer eligi ble based on patient's age to complete this topic MMR Vaccines Aged Out No longer eligi ble based on patient's age to complete this topic Meningococcal ACWY Vaccine Aged Out N o longer eligible based on patient's age to complete this topic Meningococcal B Vacine Aged Out No lo nger eligible based on patient's age to complete this topic Pneumococcal Vaccine: Pediat rics (0 to 5 Years) and At-Risk Patients (6 to 64 Years) Aged Out No longer eligible b ased on patient's age to complete this topic RSV Immunization Patients Un harrison 20 months Aged Out No longer eligible b ased on patient's age to complete this topic Varicella Vaccines Aged Out No longer eligible based on patient's age to complete this topic
== END 2024-07-06 10:00 | disposition home or self-care (01) ==
PROVIDERS: PCP Internal Medicine; Visit Provider Internal Medicine
DX: J45.909 Unspecified asthma, uncomplicated (principal); G43.909 Migraine, unspecified, not intractable, without status migrainosus; E66.01 Morbid (severe) obesity due to excess calories; Z68.43 Body mass index [BMI] 50.0-59.9, adult; D50.9 Iron deficiency anemia, unspecified; G93.2 Benign intracranial hypertension

== ENCOUNTER → 2024-07-06 09:26 | Outpatient (BNVA) | payer OTHER, SELFPAY | PROVIDERS: PCP Internal Medicine; Visit Provider Internal Medicine | DX: J45.909 Unspecified asthma, uncomplicated (principal); G43.909 Migraine, unspecified, not intractable, without status migrainosus; E66.01 Morbid (severe) obesity due to excess calories; Z68.43 Body mass index [BMI] 50.0-59.9, adult; Z71.3 Dietary counseling and surveillance; D50.9 Iron deficiency anemia, unspecified; G93.2 Benign intracranial hypertension | CPT/HCPCS: 96127; 99212 ==

== ENCOUNTER 2024-10-07 08:34 | Outpatient (REF) | payer OTHER, SELFPAY ==
[2024-10-07 08:56] LABS: MANUAL DIFF FLAG NO
[2024-10-07 09:22] LABS: Basophils Percent Auto 0.3 % (0-2); Eosinophils Absolute Auto 0.1 X10*3/uL (0.0-0.4); Eosinophils Percent Auto 0.7 % (0-4); Hematocrit 39.7 % (37.0-47.0); Hemoglobin 11.9 g/dl (12.0-16.0); Imm Gran Abs Auto 0.03 X10*3/uL (0.00-0.03); Imm Gran Pct Auto 0.4 % (0.0-0.4); Immature Retic Fraction 25.4 % (3.0-15.9); Lymphocytes Absolute Auto 2.3 X10*3/uL (1.2-4.9); Mean Corpuscular Hemoglobin 23.9 pg (27.0-33.0); Mean Corpuscular Volume 79.7 fL (80.0-98.0); Monocytes Absolute Auto 0.7 X10*3/uL (0.1-1.2); Monocytes Percent Auto 9.9 % (2-11); Neutrophils Percent Auto 56.7 % (45-73); Platelet Count 391 X10*3/uL (160-400); Red Blood Count 4.98 X10*6/uL (4.20-5.50); Red Cell Distribution Width 15.8 % (11.0-16.0); Retic HGB Equivalent 22.4 pg (30.0-35.0); Reticulocyte Percent 1.4 % (0.5-1.8); Reticulocytes Absolute 0.067 X10*6/uL (0.026-0.095); White Blood Count 7.1 X10*3/uL (4.8-10.8)
[2024-10-07 09:45] LABS: Estimated Average Glucose 105 mg/dL; Hemoglobin A1c % 5.3 % (<6.0)
[2024-10-07 09:53] LABS: Alanine Aminotransferase 36 U/L (0-31); Albumin Level 3.7 g/dL (3.5-5.0); Alkaline Phosphatase 78 U/L (39-117); Anion Gap 10 (12-20); Aspartate Amino Transferase 29 U/L (5-31); Bilirubin Total 0.3 mg/dL (0.0-1.0); Blood Urea Nitrogen 11 mg/dL (9-16); Calcium 8.4 mg/dL (8.4-10.2); Carbon Dioxide 24 mmol/L (22-29); Chloride 110 mmol/L (96-108); Estimated Glomerular Filt Rate > 60; Glucose Random 82 mg/dL (60-115); Iron 22 mcg/dL (30-160); Percent Iron Saturation 6 % (15-50); Potassium 4.1 mmol/L (3.3-5.1); Sodium 140 mmol/L (135-145); Total Iron Binding Capacity 340 mcg/dL (228-428); Total Protein 6.5 g/dL (6.5-8.0); Unsaturated Iron Binding 318 ug/dL
[2024-10-07 10:07] LABS: Folate 11.4 ng/mL (> or = 4.0); Vitamin B12 282 pg/mL (200-900)
[2024-10-07 10:14] LABS: Ferritin 6 ng/mL (10-122); Thyroid Stimulating Hormone 3.88 uIU/mL (0.32-4.0)
== END 2024-10-07 08:35 | disposition home or self-care (01) ==
LOC: HO.LAB 08:34
PROVIDERS: PCP Internal Medicine; Visit Provider Internal Medicine
DX: D50.9 Iron deficiency anemia, unspecified (principal)
CPT/HCPCS: 36415; 80053; 82607; 82728; 82746; 83036; 83540; 84443; 85025; 85045

== ENCOUNTER 2024-10-12 09:29 | Outpatient (AMB) | payer OTHER, SELFPAY ==
[2024-10-12 09:30] VITALS: BP 124/82; PULSE 92; O2SAT 99
--- NOTE | 2024-10-12 09:30 | MHC.PC.OV ---
Vital Signs 10/12/24 09:30 BP 124/82 Pulse 92 Pulse Oximetry (%) 99 Intake Visit Reasons: 3 Month F/U Spiral Gear Generator Required: No Accompanied by: Self / Same As Patient Allergies No Known Allergies Allergy (Verified 10/12/24 09:31) Tobacco use date assessed: 10/12/24 Dental Screening Dental Screen Date: 10/12/24 Did you have a dental visit in the last 12 months?: Yes Did you have a dental problem in the last 6 months where you did not have access to dental care?: No Was dental information given to patient?: Patient has dentist [facility] Medical History (Updated 07/06/24 @ 09:40 by Eron Ramsey MD) Diarrhea Obesity Depression Abdominal cramping Surgical History H/O tubal ligation History of ankle surgery Family History Mother IBS (irritable bowel syndrome) Brother IBS (irritable bowel syndrome) Maternal Aunt Colon cancer Father No problems noted. Maternal Grandmother Breast cancer Social History Housing: Apartment Alcohol intake: never Patient Tobacco Use Status: Never used Tobacco Tobacco use type: Cigarette e-Cigarette/Vaping Use: Never Used Second Hand Smoke Exposure: No service: No Current occupational status: employed Cognitive needs: No Hearing needs: No Vision needs: No Questionnaire PHQ-9 Over the last 2 weeks, how often have you been bothered by any of the following problems? 1. Little interest or pleasure in doing things: not at all 2. Feeling down, depressed, or hopeless: not at all 3. Trouble falling or staying asleep, or sleeping too much: several days 4. Feeling tired or having little energy: several days 5. Poor appetite or overeating: several days 6. Feeling bad about yourself - or that you are a failure or have let yourself or your family down: not at all 7. Trouble concentrating on things, such as reading the newspaper or watching television: not at all 8. Moving or speaking so slowly that other people could have noticed. Or the opposite - being so fidgety or restless that you have been moving around a lot more than usual: not at all 9. Thoughts that you would be better off or of hurting yourself in some way: not at all Total score: 3 Source: Developed by Drs. Eric Goodson, Marjorie Wilcox, Kelvin Sosa and colleagues, with an educational paulino from [employer]. Thrive Questionnaire Date Thrive assessed: 10/12/24 I am a: Patient What is your living situation today?: I have a steady place to live Within the past 12 months, did the food you bought not last and you didn't have the money to get more?: Never true Within the past 12 months, did you worry whether your food would run out before you got money to buy more?: Never true Do you have trouble paying for medicines?: No Do you have trouble getting transportation to medical appointments?: No Do you have trouble paying your heating and electricity bill?: No Do you have trouble taking care of your child, family member or friend?: No Do you have trouble with day-to-day activities such as bathing, preparing meals, shopping, managing finances, etc.?: No Are you currently unemployed and looking for a job?: No Are you interested in more education?: Yes Please select the resources that you would like help with: None Currently or been in a relationship where the following occur: No concerns reported THRIVE Score: 0 AUDIT C Alcohol Use Questionnaire (AUDIT-C) 1. How often do you have a drink containing alcohol?: Never 3. How often do you have six or more drinks on one occasion?: Never Total Score: 0 MARIO-7 AMB Questionnaire MARIO-7 Date MARIO - 7 assessed: 10/12/24 Feeling nervous, anxious, or on edge: 0 = Not at all Not being able to stop or control worryin = Not at all Worrying too much about different things: 0 = Not at all Trouble relaxin = Not at all Being so restless that it is hard to sit still: 0 = Not at all Becoming easily annoyed or irritable: 0 = Not at all Feeling afraid as if something awful might happen: 0 = Not at all Total MARIO-7 score (0-4 normal; 5-9 mild; 10-14 moderate; 15-21 severe): 0 Source: Developed by Drs. Eric Goodson, Marjorie Wilcox, Kelvin Sosa and colleagues, with an educational paulino from [employer]. Physical exam (Primary Care) Vital Signs: Last Vital Signs Pulse 92 10/12/24 09:30 BP 124/82 10/12/24 09:30 Pulse Ox 99 10/12/24 09:30 Tobacco/Smoking Status: Tobacco use Status Tobacco use date assessed 10/12/24 10/12/24 09:35 Patient Tobacco Use Status Never used Tobacco 10/12/24 09:35 Tobacco use type Cigarette 10/12/24 09:35 e-Cigarette/Vaping Use Never Used 10/12/24 09:35 PHQ-9: PHQ-9 Score PHQ-9: Total score 3 10/12/24 09:50 Thrive Assessment: Date of Thrive Assessment Date Thrive assessed 10/12/24 10/12/24 09:35 Currently or been in a relationship where the following occur: No concerns reported Const General: alert; No acute distress Eyes Conjunctivae: conjunctivae normal Resp Auscultation: clear to auscultation bilaterally Cardio Rate: regular rate Rhythm: regular rhythm GI Inspection: Yes normal to inspection Extrem General: Yes normal to inspection and No edema Coding Level of Care Code Est Pt Level 4 (30860) Complex EM visit Add On G2211 Diagnoses Iron deficiency anemia D50.9 Pseudotumor cerebri G93.2 Morbid obesity with BMI of 50.0-59.9, adult E66.01; Z68.43 Hypertriglyceridemia E78.1 Generalized anxiety disorder F41.1 Assessment & Plan Assessment & Plan (1) Iron deficiency anemia: Code(s): D50.9 - Iron deficiency anemia, unspecified Category: Medical Plan: Anemia is resolving but will need to continue on taking iron with vitamin-C. Also added vitamin B12 1000 mcg once a day [id number] (2) Pseudotumor cerebri: Code(s): G93.2 - Benign intracranial hypertension Category: Medical Plan: Patient was referred to Neurology. Patient is scheduled with [facility] neurology (3) Morbid obesity with BMI of 50.0-59.9, adult: Code(s): E66.01 - Morbid (severe) obesity due to excess calories; Z68.43 - Body mass index [BMI] 50.0-59.9, adult Category: Medical Plan: Continue with diet and exercise. Awaiting Weight management referral (4) Hypertriglyceridemia: Code(s): E78.1 - Pure hyperglyceridemia Category: Medical Plan: Avoid fried foods, chicken skin, eggs, butter margarine, pastries and meat. Be it pork or beef they have a lot of cholesterol LDL goal of less than 130 and triglyceride of less than 150 (5) Generalized anxiety disorder: Code(s): F41.1 - Generalized anxiety disorder Category: Medical Plan: stable Plan History of Present Illness The patient is a 29-year-old female presenting for a follow-up visit. She has a history of asthma, generalized anxiety disorder, hypercholesterolemia, and major depression. The patient was diagnosed with pseudotumor cerebri and was referred to neurology for further evaluation. She visited the emergency room on July 22 for left lower quadrant pain, which was diagnosed as an ovarian cyst. Blood work conducted on October 07, 2024, revealed anemia with a hemoglobin level of 11.9 g/dL and hematocrit of 39.7%, along with microcytosis and hypochromia. Electrolytes and renal function were normal, but iron deficiency was noted, with iron levels at 22 mcg/dL and ferritin at 6 ng/mL. Vitamin B12 levels were slightly low at 282 pg/mL, and thyroid function was normal. Health Maintenance - Continue with diet and exercise for cholesterol management, aiming for LDL less than 130 mg/dL and triglycerides less than 150 mg/dL. Social History Review of Systems - Gastrointestinal: Reports left lower quadrant pain, diagnosed as an ovarian cyst. Physical Exam Results - Labs: Hemoglobin 11.9 g/dL, Hematocrit 39.7%, Iron 22 mcg/dL, Ferritin 6 ng/mL, Vitamin B12 282 pg/mL, Normal thyroid function. Plan The patient will continue with iron supplementation and vitamin C to address iron deficiency anemia, as her hemoglobin levels have improved but remain below normal. Vitamin supplementation is also recommended due to slightly low levels. The patient is advised to maintain her current diet and exercise regimen to manage hypercholesterolemia, with a target LDL cholesterol of less than 130 mg/dL and triglycerides less than 150 mg/dL. Follow-up with neurology is pending due to a change in her neurologist, and she is awaiting contact for further evaluation of pseudotumor cerebri. Patient was informed and verbally consented to the use of an ambient scribe for clinic note documentation during this visit. Discussion Notes I discussed with the patient the importance of continuing iron and vitamin C supplementation to improve her anemia, as well as the need for vitamin B12 supplementation due to low levels. We reviewed her cholesterol management plan, emphasizing the importance of diet and exercise to achieve her lipid goals. I informed her about the pending neurology follow-up and reassured her that I would send a message to expedite the process. Patient Instructions - Continue taking iron and vitamin C supplements as prescribed. - Start taking vitamin B12 supplements. - Maintain a healthy diet and regular exercise to manage cholesterol levels. - Await contact from neurology for follow-up on pseudotumor cerebri.
--- OUTSIDE RECORDS SUMMARY | 2024-10-12 10:16 | XMS_ITS | Clinical Summary ---
Author Organization [facility] ity Address [address] [place] [address] Care Team Providers Care Course Instructor Name Role Phone Unavailable Primary Care Provider [...] - 2023-2 5 season) 2023 Influenza Vaccine (Season Ended) 2024 HIB Vaccines Aged Out No longer eligi [...] age to complete this topic Meningococcal B Vaccine Aged Out No l onger eligible based on patient's age to complete [...]
== END 2024-10-12 10:50 | disposition home or self-care (01) ==
LOC: HO.HMCH 09:29
PROVIDERS: PCP Internal Medicine; Visit Provider Internal Medicine
DX: D50.9 Iron deficiency anemia, unspecified (principal); G93.2 Benign intracranial hypertension; E66.01 Morbid (severe) obesity due to excess calories; Z68.43 Body mass index [BMI] 50.0-59.9, adult; E78.1 Pure hyperglyceridemia; F41.1 Generalized anxiety disorder

== ENCOUNTER → 2024-10-12 09:29 | Outpatient (BNVA) | payer OTHER, SELFPAY | PROVIDERS: PCP Internal Medicine; Visit Provider Internal Medicine | DX: G93.2 Benign intracranial hypertension (principal); D50.9 Iron deficiency anemia, unspecified; E66.01 Morbid (severe) obesity due to excess calories; E78.1 Pure hyperglyceridemia; F41.1 Generalized anxiety disorder; J45.909 Unspecified asthma, uncomplicated; E78.00 Pure hypercholesterolemia, unspecified; F32.9 Major depressive disorder, single episode, unspecified; Z68.43 Body mass index [BMI] 50.0-59.9, adult | CPT/HCPCS: 99212 ==

== ENCOUNTER 2024-10-21 09:52 | Outpatient (AMB) | payer OTHER, SELFPAY ==
--- NOTE | 2024-10-21 09:55 | A.OFFVIS_ITS ---
Vital Signs 10/21/24 09:57 Height 5 ft 7 in Weight 345 lb BMI 54.0 BP 124/82 Blood Pressure Location Lt brachial Position Sitting Pulse 88 Pulse Oximetry (%) 98 Oxygen Delivery Method Room Air Intake Visit Reasons: IBS l/s 2020 Intake Note: Patient new consult for IBS ricardo was 2020. Patient cc: diarrhea with hemorrhoids on and off, denies any other GI issues. Collaborative Physician Required: No Accompanied by: Self / Same As Patient Allergies No Known Allergies Allergy (Verified 10/21/24 09:55) HPI HPI IBS l/s 2020: Details: Assessment & Plan (1) Diarrhea: Code(s): R19.7 - Diarrhea, unspecified Category: Medical Plan - ADELAIDE Ontiveros: She tells me that she just discovered she is ! She is happy about this and the baby will be due in November. She got that she was simply tired gaining weight etc and did not realize it she so she has quite a little ways along. Her biggest concern is finding out what medication she can take during her . I tell her that the dicyclomine is fine as it is in her in does not interact in the blood stream the dicyclomine is considered safe in but not in breast-feeding. I tell her that the reason is that dicyclomine be transmitted through the breast milk and could cause respiratory depression infection. She is able to repeat verbalize understanding. She continues to do well with her medications will put a six-month follow-up give her plenty of time to have her baby get home and start recovering. She can always call me if she needs me prior to this. Medications: New: dicyclomine 20 mg PO QID 30 days 120 tabs 6RF Refilled: sucralfate (Carafate) 2 grams (2 x 1 gram) PO DAILY 60 tabs 6RF (2) Abdominal cramping: Code(s): R10.9 - Unspecified abdominal pain Category: Medical Medications: New: dicyclomine 20 mg PO QID 30 days 120 tabs 6RF (3) : Comment: Do in November of 2020 Code(s): Z34.90 - Encounter for supervision of normal , unspecified, unspecified trimester Category: Medical TODAYS VISIT She has been lost to follow-up since 2020. She became and then after that her insurance changed and we were no longer under her umbrella of coverage. Now she is different insurance and she is back to us. She continues with the same problem with postprandial severe diarrhea that is very life limiting in his also aggravating her hemorrhoids. In the past she thinks the dicyclomine help and she can not remember if the Carafate was helpful, but I am thinking it probably was not or a probably would not have added the dicyclomine. At this time I think will do a trial of cholestyramine and will also restart the dicyclomine so that she has many tools to help improve her quality of life until we can uncover an underlying cause or thoroughly determine if this is simply irritable bowel syndrome. She says that her mother and her sister both have IBS they also are status post cholecystectomy. Differential diagnosis includes but is not limited to food allergies, pancreatic insufficiency, gallbladder insufficiency, or even microscopic colitis. With this in mind we will get a RAST panel, CRP, (rule out IBD) a pancreatic a last taste, at ultrasound of her abdomen, and a colonoscopy ordered. There are no prior problems with anesthesia or sedation. She has mild asthma that is well controlled and denies cardiac problems. There are no infectious disease problems. She had a maternal aunt that of colon cancer and her mother had polyps but this was later in life. Return office visit in 6 weeks to evaluate her response to the medications [facility] Medical History (Updated 10/21/24 @ 10:19 by ADELAIDE Ontiveros) Diarrhea Annual physical exam Obesity Depression Abdominal cramping Surgical History H/O tubal ligation History of ankle surgery Family History Mother IBS (irritable bowel syndrome) Brother IBS (irritable bowel syndrome) Maternal Aunt Colon cancer Father No problems noted. Maternal Grandmother Breast cancer Social History Housing: Apartment Alcohol intake: never Patient Tobacco Use Status: Never used Tobacco Tobacco use type: Cigarette e-Cigarette/Vaping Use: Never Used Second Hand Smoke Exposure: No service: No Current occupational status: employed Cognitive needs: No Hearing needs: No Vision needs: No Review of Systems Const Denies fatigue, Denies fever(s), Denies night sweats, Denies poor appetite and Denies weight loss ENT Reports Normal hearing present, Denies dental pain, Denies dysphagia, Denies hearing loss, Denies mouth pain, Denies odynophagia, Denies throat swelling, Denies tongue swelling and Reports other (Dentition adequate) Card Reports no additional complaints Resp Reports no additional complaints GI Details: Denies abdominal pain, Denies melena, Reports bloating, Denies hematochezia, Denies constipation, Denies GI cramping, Denies dysphagia, Reports excessive flatus, Denies early satiety, Reports heartburn, Reports diarrhea, Denies nausea, Denies odynophagia, Denies vomiting and Denies hematemesis Skin/Breast Denies pruritus, Denies lesions, Denies rash and Denies jaundice Neuro Reports Normal hearing present and Denies Abnormal speech present Endo Denies fatigue Aller/Immun Denies throat swelling and Denies tongue swelling Physical Exam Vital Signs: Last Vital Signs Pulse 88 10/21/24 09:57 BP 124/82 10/21/24 09:57 Pulse Ox 98 10/21/24 09:57 Oxygen Delivery Method Room Air 10/21/24 09:57 BMI result Body Mass Index 54.0 Const General: cooperative, no acute distress, well developed and well groomed Nutritional Appearance: well nourished and obese morbidly obese Orientation/consciousness: oriented to person, oriented to place and oriented to time Limitations: No language barrier HEENT Head: Yes normocephalic and Yes atraumatic Eyes General: appearance normal, both eyes and all related structures Pupils: Equal, round and reactive pupils present Neck Neck: Yes normal visual inspection and Yes no lymphadenopathy Thyroid: Thyroid normal Resp Effort & Inspection: normal respiratory effort and able to speak in complete sentences Auscultation: clear to auscultation bilaterally Cardio Rate: regular rate Rhythm: regular rhythm Heart sounds: Normal, physiologic split S2 sound present Peripheral pulses: radial pulses present and posterior tibial pulses present GI Inspection: No distended, Yes Abdominal panniculus present and Yes obesity Palpation (GI): Soft to palpation, nontender, no guarding, not rigid and No hepatosplenomegaly present Percussion: Yes normal to percussion Auscultation: normal bowel sounds Rectal Exam - Female: deferred Skin General skin exam: no rashes or lesions noted, turgor normal, skin not dry, no jaundice, No spider nevi and no striae Rashes: no rashes Nails: normal Neuro General: oriented to person, oriented to place and oriented to time Cranial nerves: Yes Equal, round and reactive pupils present and Yes Normal hearing present Speech: No Abnormal speech present Extrem General: Yes normal to inspection, No clubbing, No cyanosis and No edema Psych Appearance: grossly normal and well kempt Mental Status: mental status grossly normal Speech and movement: Normal speech and movement present Affect: normal affect Attitude: cooperative Thought process: Normal thought process present and not confabulating Thought content: Normal thought content present Insight: Fair insight present (Psych) Judgement: Fair judgement present (Psych) Assessment & Plan Assessment & Plan (1) IBS (irritable bowel syndrome): Code(s): K58.9 - Irritable bowel syndrome, unspecified Category: Medical (2) Diarrhea: Code(s): R19.7 - Diarrhea, unspecified Category: Medical (3) Upper abdominal pain: Code(s): R10.10 - Upper abdominal pain, unspecified Category: Medical Plan She has been lost to follow-up since 2020. She became and then after that her insurance changed and we were no longer under her umbrella of coverage. Now she is different insurance and she is back to us. She continues with the same problem with postprandial severe diarrhea that is very life limiting in his also aggravating her hemorrhoids. In the past she thinks the dicyclomine help and she can not remember if the Carafate was helpful, but I am thinking it probably was not or a probably would not have added the dicyclomine. At this time I think will do a trial of cholestyramine and will also restart the dicyclomine so that she has many tools to help improve her quality of life until we can uncover an underlying cause or thoroughly determine if this is simply irritable bowel syndrome. She says that her mother and her sister both have IBS they also are status post cholecystectomy. Differential diagnosis includes but is not limited to food allergies, pancreatic insufficiency, gallbladder insufficiency, or even microscopic colitis. With this in mind we will get a RAST panel, CRP, (rule out IBD) a pancreatic a last taste, at ultrasound of her abdomen, and a colonoscopy ordered. There are no prior problems with anesthesia or sedation. She has mild asthma that is well controlled and denies cardiac problems. There are no infectious disease problems. She had a maternal aunt that of colon cancer and her mother had polyps but this was later in life. Return office visit in 6 weeks to evaluate her response to the medications Orders: Orders Rast Allergen Today R19.7 - Diarrhea, unspecified Transglutaminase IgA Today R19.7 - Diarrhea, unspecified Transglutaminase Ab IgG Today R19.7 - Diarrhea, unspecified C Reactive Protein Today R19.7 - Diarrhea, unspecified Colonoscopy - GI Use Only Today R19.7 - Diarrhea, unspecified Pancreatic Elastase-1 Today R19.7 - Diarrhea, unspecified US abdomen complete Today R10.10 - Upper abdominal pain, unspecified Medications: New cholestyramine (Cholestyramine Light) administer w/meal; avoid other meds within 1hr before or 4-6hr after dose 8 grams PO BID 120 ea 3RF R19.7 - Diarrhea, unspecified Coding Level of Care Code New Pt Level 3 (91244) Diagnoses IBS (irritable bowel syndrome) K58.9 Diarrhea R19.7 Upper abdominal pain R10.10
[2024-10-21 09:57] VITALS: BP 124/82; PULSE 88; O2SAT 98; BMI 54.0
--- OUTSIDE RECORDS SUMMARY | 2024-10-21 11:18 | XMS_ITS | Clinical Summary ---
Author Organization [facility] ity Address [address] [place] [address] Care Team Providers Care Digitizer Name Role Phone Unavailable Primary Care Provider [...]
== END 2024-10-21 10:25 | disposition home or self-care (01) ==
LOC: HO.HGI 09:52
PROVIDERS: PCP Internal Medicine; Visit Provider Nurse Practitioner
DX: K58.9 Irritable bowel syndrome, unspecified (principal); R19.7 Diarrhea, unspecified; R10.10 Upper abdominal pain, unspecified
CPT/HCPCS: 99203

== ENCOUNTER 2024-10-21 09:52 | Outpatient (REF) | payer OTHER, SELFPAY ==
[2024-10-21 12:05] LABS: C Reactive Protein 1.06 mg/dL (< or = 0.50)
[2024-10-22 22:39] LABS: Transglutaminase Ab IgG <1.0 U/mL; Transglutaminase IgA <1.0 U/mL
[2024-10-22 23:33] LABS: Class Almond 0; Class Brazil Nut 0; Class Cashew 0; Class Codfish 0; Class Cow's Milk 0; Class Egg white 0; Class Hazelnut 0; Class Macadamia Nut 0; Class Peanut 0; Class Salmon 0; Class Scallop 0; Class Sesame Seed 0; Class Shrimp 0; Class Soybean 0; Class Tuna 0; Class Walnut 0; Class Wheat 0; F001-IgE Egg White <0.10 kU/L; F002-IgE Milk <0.10 kU/L; F003-IgE Codfish <0.10 kU/L; F004-IgE Wheat <0.10 kU/L; F010-IgE Sesame Seed <0.10 kU/L; F013-IgE Peanut <0.10 kU/L; F014-IgE Soybean <0.10 kU/L; F017-IgE Hazelnut (Filbert) <0.10 kU/L; F018-IgE Brazil Nut <0.10 kU/L; F020-IgE Almond <0.10 kU/L; F024-IgE Shrimp <0.10 kU/L; F040-IgE Tuna <0.10 kU/L; F041 IgE Salmon <0.10 kU/L; F202-IgE Cashew Nut <0.10 kU/L; F256-IgE Walnut <0.10 kU/L; F338-IgE Scallop <0.10 kU/L; F345-IgE Macadmia Nut <0.10 kU/L
== END 2024-10-21 09:53 | disposition home or self-care (01) ==
LOC: HO.LAB 09:52
PROVIDERS: PCP Internal Medicine; Visit Provider Nurse Practitioner
DX: R19.7 Diarrhea, unspecified (principal); K58.9 Irritable bowel syndrome, unspecified; R10.10 Upper abdominal pain, unspecified
CPT/HCPCS: 36415; 86003; 86140; 86364; 99202

== ENCOUNTER 2024-11-25 08:58 | Outpatient (REF) | payer OTHER, SELFPAY ==
--- NOTE | ~2024-11-25 | US_ITS ---
EXAMINATION: US ABDOMEN HISTORY: R10.10 - Upper abdominal pain, unspecified TECHNIQUE: Real-time grayscale ultrasound imaging of the abdomen was performed and images were reviewed. COMPARISON: Comparison is made with the prior examination dated 05/14/2019. FINDINGS: Liver: The right lobe of the liver measures 14.7 cm in size. The left lobe of the liver measures 8.9 cm in size. The liver demonstrates normal homogeneous echotexture. No focal mass or intrahepatic biliary ductal dilatation is identified. There is normal hepatopedal flow in the portal vein. Gallbladder and biliary tree: The gallbladder is unremarkable, without evidence of calculi, wall thickening, or pericholecystic fluid. There is no sonographic Do sign. The common bile duct is normal in caliber measuring 4 mm. Kidneys: The right kidney measures 12.0 cm in length. The left kidney measures 12.3 cm in length. The kidneys are unremarkable, without evidence of masses, hydronephrosis, or calculi. Pancreas: The pancreas is inserted by bowel gas. Spleen: The spleen is normal in size and contour, measuring 11.5 cm in length. Abdominal aorta and inferior vena cava: The visualized portions of the abdominal aorta and inferior vena cava are normal in caliber. There is no free fluid in the abdomen. US/US abdomen complete IMPRESSION: The pancreas is obscured by bowel gas. Otherwise unremarkable abdominal ultrasound. Electronically signed by: Eric Roger MD 11/25/2024 09:38 AM EDT
--- OUTSIDE RECORDS SUMMARY | 2024-11-25 09:24 | XMS_ITS | Clinical Summary ---
Author Organization [facility] ity Address [address] [place] [address] Care Team Providers Care Test Engineering Manager Name Role Phone Unavailable Primary Care Provider [...] Vaccine ( - 2023-2 5 season) 2023 Depression Screening 04/29/2024 Influenza Vaccine (#1) 2024 HIB Vaccines Aged Out No longer [...] 5 Years) and At-Risk Patients (6 to 49 Years) Aged Out No longer eligible b ased on patient's age to complete this topic RSV Immunization Patients Un harrison 20 months Aged Out No longer eligible b ased on patient's age to complete this topic Varicella Vaccines Aged Out No longer eligible based on patient's age to complete this topic
== END 2024-11-25 08:59 | disposition home or self-care (01) ==
LOC: HO.HMGCX 08:58
PROVIDERS: PCP Internal Medicine; Visit Provider Nurse Practitioner
DX: R10.10 Upper abdominal pain, unspecified (principal)
CPT/HCPCS: 76700

== ENCOUNTER → 2024-11-25 09:00 | Outpatient (BNV) | payer OTHER, SELFPAY | PROVIDERS: PCP Internal Medicine; Visit Provider Radiology Diagnostic Radiology | DX: R10.10 Upper abdominal pain, unspecified (principal) | CPT/HCPCS: 76700 ==

== ENCOUNTER 2024-12-02 13:51 | Outpatient (AMB) | payer OTHER, SELFPAY ==
[2024-12-02 13:52] VITALS: BP 126/64; PULSE 99; BMI 55.9
--- NOTE | 2024-12-02 13:52 | MHC.OFFVIS ---
Vital Signs 12/02/24 13:52 Height 5 ft 7 in Weight 356 lb 11.327 oz BMI 55.9 BP 126/64 Blood Pressure Location Lt brachial Position Sitting Pulse 99 Intake Visit Reasons: diarrhea Intake Note: Patient in office today in follow up of diarrhea. CC: Patient states that the pain is better with medication but continues to have diarrhea. Bindery Worker Required: No Accompanied by: Self / Same As Patient Allergies No Known Allergies Allergy (Verified 12/02/24 13:58) HPI HPI diarrhea: Details: Assessment & Plan (1) IBS (irritable bowel syndrome): Code(s): K58.9 - Irritable bowel syndrome, unspecified Category: Medical (2) Diarrhea: Code(s): R19.7 - Diarrhea, unspecified Category: Medical (3) Upper abdominal pain: Code(s): R10.10 - Upper abdominal pain, unspecified Category: Medical Plan She has been lost to follow-up since 2020. She became and then after that her insurance changed and we were no longer under her umbrella of coverage. Now she is different insurance and she is back to us. She continues with the same problem with postprandial severe diarrhea that is very life limiting in his also aggravating her hemorrhoids. In the past she thinks the dicyclomine help and she can not remember if the Carafate was helpful, but I am thinking it probably was not or a probably would not have added the dicyclomine. At this time I think will do a trial of cholestyramine and will also restart the dicyclomine so that she has many tools to help improve her quality of life until we can uncover an underlying cause or thoroughly determine if this is simply irritable bowel syndrome. She says that her mother and her sister both have IBS they also are status post cholecystectomy. Differential diagnosis includes but is not limited to food allergies, pancreatic insufficiency, gallbladder insufficiency, or even microscopic colitis. With this in mind we will get a RAST panel, CRP, (rule out IBD) a pancreatic a last taste, at ultrasound of her abdomen, and a colonoscopy ordered. There are no prior problems with anesthesia or sedation. She has mild asthma that is well controlled and denies cardiac problems. There are no infectious disease problems. She had a maternal aunt that of colon cancer and her mother had polyps but this was later in life. Return office visit in 6 weeks to evaluate her response to the medications Orders: Orders Rast Allergen Today R19.7 - Diarrhea, unspecified Transglutaminase IgA Today R19.7 - Diarrhea, unspecified Transglutaminase Ab IgG Today R19.7 - Diarrhea, unspecified C Reactive Protein Today R19.7 - Diarrhea, unspecified Colonoscopy - GI Use Only Today R19.7 - Diarrhea, unspecified Pancreatic Elastase-1 Today R19.7 - Diarrhea, unspecified US abdomen complete Today R10.10 - Upper abdominal pain, unspecified Medications: New cholestyramine (Cholestyramine Light) administer w/meal; avoid other meds within 1hr before or 4-6hr after dose 8 grams PO BID 120 ea 3RF R19.7 - Diarrhea, unspecified LABS: Laboratory Tests 10/21/24 10:47 C-Reactive Protein 1.06 H Tiss Transglutamin IgG <1.0 Tiss Transglutamin IgA <1.0 RAST PANEL SHOWS no significant food allergies Pancreatic a last taste was not obtained ULTRASOUND OF THE ABDOMEN 11/25/2024 FINDINGS: Liver: The right lobe of the liver measures 14.7 cm in size. The left lobe of the liver measures 8.9 cm in size. The liver demonstrates normal homogeneous echotexture. No focal mass or intrahepatic biliary ductal dilatation is identified. There is normal hepatopedal flow in the portal vein. Gallbladder and biliary tree: The gallbladder is unremarkable, without evidence of calculi, wall thickening, or pericholecystic fluid. There is no sonographic Do sign. The common bile duct is normal in caliber measuring 4 mm. Kidneys: The right kidney measures 12.0 cm in length. The left kidney measures 12.3 cm in length. The kidneys are unremarkable, without evidence of masses, hydronephrosis, or calculi. Pancreas: The pancreas is inserted by bowel gas. Spleen: The spleen is normal in size and contour, measuring 11.5 cm in length. Abdominal aorta and inferior vena cava: The visualized portions of the abdominal aorta and inferior vena cava are normal in caliber. There is no free fluid in the abdomen. US/US abdomen complete IMPRESSION: The pancreas is obscured by bowel gas. Otherwise unremarkable abdominal ultrasound. COLONOSCOPY BIOPSY TODAY'S VISIT She is having relief from pain, but diarrhea continues, a little better with less liquid and some soft stools but not resolved on 1 packet addie bid. Increase to 2 bid. Body wt a factor she is large lady. Still needed proper cups for stool testing, adding calprotectin given elevated CRP. ROV 6 weeks. [facility] Medical History Diarrhea Annual physical exam Obesity Depression Abdominal cramping Surgical History H/O tubal ligation History of ankle surgery Family History Mother IBS (irritable bowel syndrome) Prediabetes HTN (hypertension) Brother IBS (irritable bowel syndrome) Maternal Aunt Colon cancer Father Prediabetes HTN (hypertension) Maternal Grandmother Breast cancer Diabetes Social History Household Members: Children Housing: Apartment Alcohol intake: never Patient Tobacco Use Status: Never used Tobacco Tobacco use type: Cigarette e-Cigarette/Vaping Use: Never Used Second Hand Smoke Exposure: No service: No Current occupational status: employed Cognitive needs: No Hearing needs: No Vision needs: No Review of Systems Const Denies fatigue, Denies fever(s), Denies night sweats, Denies poor appetite and Denies weight loss ENT Reports Normal hearing present, Denies dental pain, Denies dysphagia, Denies hearing loss, Denies mouth pain, Denies odynophagia, Denies throat swelling, Denies tongue swelling and Reports other (Dentition adequate) Card Reports no additional complaints Resp Reports no additional complaints GI Details: Denies abdominal pain, Denies melena, Denies bloating, Denies hematochezia, Denies constipation, Reports GI cramping, Denies dysphagia, Denies excessive flatus, Denies early satiety, Denies heartburn, Denies diarrhea, Reports loose stools, Denies nausea, Denies odynophagia, Denies vomiting and Denies hematemesis Skin/Breast Denies pruritus, Denies lesions, Denies rash and Denies jaundice Neuro Reports Normal hearing present and Denies Abnormal speech present Endo Denies fatigue Aller/Immun Denies throat swelling and Denies tongue swelling Physical Exam Vital Signs: Last Vital Signs Pulse 99 12/02/24 13:52 BP 126/64 12/02/24 13:52 BMI result Body Mass Index 55.9 Const General: cooperative, no acute distress, well developed and well groomed Nutritional Appearance: well nourished, obese and overweight Orientation/consciousness: oriented to person, oriented to place and oriented to time Limitations: No language barrier, ambulation with cane, ambulation with walker and wheelchair HEENT Head: Yes normocephalic and Yes atraumatic Eyes General: appearance normal, both eyes and all related structures Pupils: Equal, round and reactive pupils present Neck Neck: Yes normal visual inspection and Yes no lymphadenopathy Thyroid: Thyroid normal Resp Effort & Inspection: normal respiratory effort and able to speak in complete sentences Auscultation: clear to auscultation bilaterally Cardio Rate: regular rate Rhythm: regular rhythm Heart sounds: Normal, physiologic split S2 sound present Peripheral pulses: radial pulses present and posterior tibial pulses present GI Inspection: No distended, Yes Abdominal panniculus present and Yes obesity Palpation (GI): Soft to palpation, nontender, no guarding, not rigid and No hepatosplenomegaly present Percussion: Yes normal to percussion Auscultation: normal bowel sounds Rectal Exam - Female: deferred Skin General skin exam: no rashes or lesions noted, turgor normal, skin not dry, no jaundice, No spider nevi and no striae Rashes: no rashes Nails: normal Neuro General: oriented to person, oriented to place and oriented to time Cranial nerves: Yes Equal, round and reactive pupils present and Yes Normal hearing present Speech: No Abnormal speech present Extrem General: Yes normal to inspection, No clubbing, No cyanosis and No edema Psych Thought process: Normal thought process present and not confabulating Thought content: Normal thought content present Insight: Good insight present (Psych) Judgement: Good judgement present (Psych) Results Reviewed Results Reviewed: Laboratory Tests 10/21/24 10:47 C-Reactive Protein 1.06 H Tiss Transglutamin IgG <1.0 Tiss Transglutamin IgA <1.0 RAST PANEL SHOWS no significant food allergies Pancreatic a last taste was not obtained ULTRASOUND OF THE ABDOMEN 11/25/2024 FINDINGS: Liver: The right lobe of the liver measures 14.7 cm in size. The left lobe of the liver measures 8.9 cm in size. The liver demonstrates normal homogeneous echotexture. No focal mass or intrahepatic biliary ductal dilatation is identified. There is normal hepatopedal flow in the portal vein. Gallbladder and biliary tree: The gallbladder is unremarkable, without evidence of calculi, wall thickening, or pericholecystic fluid. There is no sonographic Do sign. The common bile duct is normal in caliber measuring 4 mm. Kidneys: The right kidney measures 12.0 cm in length. The left kidney measures 12.3 cm in length. The kidneys are unremarkable, without evidence of masses, hydronephrosis, or calculi. Pancreas: The pancreas is inserted by bowel gas. Spleen: The spleen is normal in size and contour, measuring 11.5 cm in length. Abdominal aorta and inferior vena cava: The visualized portions of the abdominal aorta and inferior vena cava are normal in caliber. There is no free fluid in the abdomen. US/US abdomen complete IMPRESSION: The pancreas is obscured by bowel gas. Otherwise unremarkable abdominal ultrasound. Assessment & Plan Assessment & Plan (1) Diarrhea: Code(s): R19.7 - Diarrhea, unspecified Category: Medical (2) IBS (irritable bowel syndrome): Code(s): K58.9 - Irritable bowel syndrome, unspecified Category: Medical Plan She is having relief from pain, but diarrhea continues, a little better with less liquid and some soft stools but not resolved on 1 packet addie bid. Increase to 2 bid. Body wt a factor she is large lady. Still needed proper cups for stool testing, adding calprotectin given elevated CRP. ROV 6 weeks. COLONOSCOPY BIOPSY Orders: Orders Calprotectin, Fecal 12/02/24 R19.7 - Diarrhea, unspecified Medications: Refilled dicyclomine 20 mg PO QID 120 tabs 3RF 30 days Coding Level of Care Code Est Pt Level 3 (58261) Diagnoses Diarrhea R19.7 IBS (irritable bowel syndrome) K58.9
--- OUTSIDE RECORDS SUMMARY | 2024-12-02 14:21 | XMS_ITS | Clinical Summary ---
Author Organization [facility] ity Address [address] [place] [address] Care Team Providers Care General Internal Medicine Doctor Name Role Phone Unavailable Primary Care Provider [...]
== END 2024-12-02 14:41 | disposition home or self-care (01) ==
LOC: HO.HGI 13:51
PROVIDERS: PCP Internal Medicine; Visit Provider Nurse Practitioner
DX: R19.7 Diarrhea, unspecified (principal); K58.9 Irritable bowel syndrome, unspecified
CPT/HCPCS: 99213

== ENCOUNTER → 2024-12-02 13:51 | Outpatient (BNVA) | payer OTHER, SELFPAY | PROVIDERS: PCP Internal Medicine; Visit Provider Nurse Practitioner | DX: R19.7 Diarrhea, unspecified (principal); K58.9 Irritable bowel syndrome, unspecified; R10.10 Upper abdominal pain, unspecified | CPT/HCPCS: 99212 ==

== ENCOUNTER 2025-01-13 08:23 | Outpatient (AMB) | payer OTHER, SELFPAY ==
--- NOTE | 2025-01-13 08:27 | MHC.OFFVISWM ---
VS Expanded 01/13/25 08:34 Height 5 ft 7 in Weight 349 lb 8 oz BMI 54.7 Body Fat % 52.8 Body Fat Mass 184.6 Fat Free Mass 165.2 Visceral Fat Rating 18 Body Water % 33.9 Body Water Mass 118.6 Basal Metabolic Rate/Score 2,467 Intake Visit Reasons: [facility] *BMI 54.8* Allergies No Known Allergies Allergy (Verified 01/13/25 08:27) Medication List - Last Reconciled 01/13/25 by Karlos Castrejon MD albuterol sulfate 90 mcg/actuation (Ventolin HFA) 2 puffs inhalation Q6H PRN ascorbate calcium (vitamin C) 500 mg PO DAILY cholecalciferol (vitamin D3) 50 mcg PO DAILY 90 days cholestyramine (Cholestyramine Light) 8 grams PO BID clindamycin phosphate 1% topical QAM dicyclomine 20 mg PO QID 30 days ferrous sulfate (Feosol) 325 mg PO DAILY ketoconazole 2% topical mecobalamin (vitamin B12) 1,000 mcg PO DAILY sumatriptan succinate (Imitrex) 50 mg PO QD prn CHRISTIANSON PRN; tretinoin 0.025% appl topical HPI HPI [facility] *BMI 54.8*: Details: Start time: 8.18am, End time: 9.03am ?I spent 40 minutes speaking with the patient on the phone plus an additional 5 minutes reviewing and updating records for a total of 45 minutes HPI Comments Details: Previous weight loss efforts: self diet and exercise Wakes up: 6am, Sleeps: 11pm Breakfast: 2-3/wk at 8am (sandwich, cereal) Lunch: 4/wk at 12pm (fast food, left overs) Dinner: 6.30pm (rice, pasta, meat) Snacks: before dinner (cereal or chips), 10pm (crackers, cookies, cereal) Exercise: has a home treadmill that inclines and shows calorie burn Beverages: Coffee/Tea: none, Soda: none, Juice: none, ETOH: none PFSH Medical History (Updated 01/13/25 @ 08:29 by Karlos Castrejon MD) Morbid obesity Diarrhea Annual physical exam Obesity Depression Abdominal cramping Surgical History H/O tubal ligation History of ankle surgery Family History Mother IBS (irritable bowel syndrome) Prediabetes HTN (hypertension) Brother IBS (irritable bowel syndrome) Maternal Aunt Colon cancer Father Prediabetes HTN (hypertension) Maternal Grandmother Breast cancer Diabetes Social History Household Members: Children Housing: Apartment Alcohol intake: never Patient Tobacco Use Status: Never used Tobacco Tobacco use type: Cigarette e-Cigarette/Vaping Use: Never Used Second Hand Smoke Exposure: No service: No Current occupational status: employed Cognitive needs: No Hearing needs: No Vision needs: No Telehealth Telehealth Telehealth Platform: Telephone Location of provider rendering services: practice address Location of patient: address on file Patient Identification confirmed using: Name, : Yes Telehealth method: voice only Patient verbally consented to treatment: Yes Patient verbally consented to billing insurance company: Yes Patient informed of any privacy concerns related to visit: Yes Minutes spent on Phone/Video with Pt.: 45 Assessment & Plan Assessment & Plan (1) Morbid obesity: Code(s): E66.01 - Morbid (severe) obesity due to excess calories Category: Medical Plan: 1. As we discussed, based on your present BMI you are approximately 160lbs overweight. In my opinion, for any weight loss strategy to be successful should have a high probability to help you lose at least 120lbs out of 160lbs of the extra weight you carry. We discussed in detail the available therapeutic options: 1) our lifestyle intervention program that has an average weight loss of 10% in 3 months.?Some patients continue it for longer and have lost over 50lbs but this is not common. Our lifestyle program can be provided by me or by using our software gary, the [employer] gary. I will provide you with a link to use the gary if you choose to do so. We use protein shakes and protein bars to replace some of the meals of the day and cover your appetite better. We will decide together the exact combination. 2) Weight loss medications: these can be used in conjunction with our lifestyle program or you may choose to use them without following a lifestyle program from my program but your own. As we discussed, your insurance requires you to use Phentermine and the injections could be used only if the Phentermine causes side effects or fail to help you lose weight. We also discussed that you can self pay for the first 3 months and the cost is $249 for the first month and $499 for any other month thereafter. These payments go to the drug company directly and not to us. 3) We also discussed about the lap sleeve gastrectomy. In my opinion this is the best option to solve your problem based on your situation and should be used in conjunction with the two previous options. A good strategy to make this decision to proceed with surgery, is to set some goals with the lifestyle intervention and medication options: If you don't lose at least 10lbs the first 6 weeks after starting the program or at least 10% in 3 months. ?I emphasized the importance of close follow-up, adherence to instructions and good communication. The surgery does not replace the need to change your lifestlyle which is the cause of the obesity problem. The surgery provides the motivation to try again to change your lifestyle, it reduces the appetite and make the transition to a better lifestyle easier and doubles the amount of weight you would lose compared to doing the lifestyle change without the surgery. You will need to be on a liquid diet with protein shakes for 2 weeks before surgery to maximize weight loss and boost your nutritional status to recover better from surgery and also for the first two weeks after surgery to let the stomach heal before we introduce other foods. After the first 2 weeks we will introduce protein bars and soft foods like scrambled eggs, cottage cheese and yogurt and after the 6th week will introduce meat, fish and cooked vegetables in small amounts. Over time you should be able to eat everything in small amounts. Side effects like nausea, vomiting, heartburn or abdominal pain are not common in the practice unless you are not following in the practice. This operation requires lifetime commitment to following in our practice and communication with me. You will much less weight and experience side effects if you don?t communicate or not following in the practice. Complications are rare and in our practice is about 1/10 of the national average. 4. The patient decided to proceed with our lifestyle program and Phentermine. We discussed the potential side-effects of the Phentermine such as irritability, dry mouth, difficulty sleeping, dizziness, numbness in feet and high blood pressure. I asked her to get a blood pressure monitor and measure the blood pressure daily in the morning and evening. She needs to send the blood pressure readings daily and to call the office for blood pressure over 140/80 and she understands that. 5. You will receive a link of our software gary to generate an individualized nutritional and exercise plan specific for you. Please send me a screenshot of the plans you will generate Meal to include lean meat (beef, fish, pork, turkey, chicken), or lithuanian yogurt, or egg whites, or beans with a salad with olive oil and fruits (berries, pears, apples, kiwi). Avoid salt, breads, potatoes, rice, pasta, desserts. 6. If you choose shakes, each shake would be drunk slowly, like coffee in a period of 2 hours. ?7. If you choose bars, cut each bar in 4 pieces and eat each piece in 30min ?to make each bar last 2 hours. ?8. I emphasized the importance of measuring accurately the food portion and measure it when serving the food in plate ?9. The meal portions include a specific number of forks of meat and salad. You always eat the meat portion but you can replace up to half of salad/vegetables portion with rice, potatoes or pasta, or a fruit ?if you like. The less you do it the better weight loss will be. ?10. One full-size fork is what it can be scooped on the fork without falling aside and not what can be bit with the fork. Use regular forks like those you find in a typical restaurant. ?11.? Please buy the body composition scale we discussed and send me weight measurements as soon as possible and then once a week. Always include your diet and exercise plan. 12. The best exercise choice would be to use your treadmill at home that can track calories. You can create and exercise plan with the [employer] gary. ?13.?It is important of avoiding and for at least 18 months postoperatively and has been discussed at the infosession. ?14. Goal is to lose at least 1.5-2lbs per week ?15. Goal to lose at least 10% of your weight, which is about 35lbs. Minimum weight goal: 315lbs before surgery 16. Please follow the diet plan exactly without any change. If you don't like something about the plan or you feel hungry you need to communicate with me so I can help you revise the plan. You should not change the plan yourself. Medications: New phentermine must administer 30 minutes before or 1-2 hours after breakfast 37.5 mg PO DAILY 30 caps 0RF E66.01 - Morbid (severe) obesity due to excess calories
[2025-01-13 08:34] VITALS: BMI 54.7
--- OUTSIDE RECORDS SUMMARY | 2025-01-13 09:15 | XMS_ITS | Clinical Summary ---
Author Organization [facility] ity Address [address] [place] [address] Care Team Providers Care Corporate Analyst Name Role Phone Unavailable Primary Care Provider [...] Cervical Cancer Screening: P ap Smear 2018 Depression Screening 04/29/2024 COVID-19 Vaccine ( - 2023-2 5 season) 2024 Influenza Vaccine (#1) 2024 HIB Vaccines Aged [...]
== END 2025-01-13 09:04 | disposition home or self-care (01) ==
LOC: HO.HBS 08:23
PROVIDERS: PCP Internal Medicine; Visit Provider Surgery
DX: E66.01 Morbid (severe) obesity due to excess calories (principal)
CPT/HCPCS: 99204

== ENCOUNTER 2025-02-12 10:15 | Outpatient (AMB) | payer OTHER, SELFPAY ==
--- NOTE | 2025-02-12 10:21 | A.OFFPC_ITS ---
Vital Signs 02/12/25 10:22 Height 5 ft 7 in Weight 351 lb 2 oz BMI 55.0 BP 140/98 H Blood Pressure Location Lt brachial Position Sitting Respiration 18 Pulse 86 Pulse Source Pulse Oximeter Temp 97.3 F Temp Source Temporal Artery Scan Pulse Oximetry (%) 96 Oxygen Delivery Method Room Air Intake Visit Reasons: feeling sick like a cold and cough Student Assistance Counselor Required: No Accompanied by: Self / Same As Patient Allergies No Known Allergies Allergy (Verified 02/12/25 10:27) Medication List - Last Reconciled 02/12/25 by Bang Amador MD albuterol sulfate 90 mcg/actuation (Ventolin HFA) 2 puffs inhalation Q6H PRN ascorbate calcium (vitamin C) 500 mg PO DAILY cholecalciferol (vitamin D3) 50 mcg PO DAILY 90 days cholestyramine (Cholestyramine Light) 8 grams PO BID clindamycin phosphate 1% topical QAM dicyclomine 20 mg PO QID 30 days ferrous sulfate (Feosol) 325 mg PO DAILY ketoconazole 2% topical mecobalamin (vitamin B12) 1,000 mcg PO DAILY phentermine 37.5 mg PO DAILY sumatriptan succinate (Imitrex) 50 mg PO QD prn CHRISTIANSON PRN; tretinoin 0.025% appl topical Tobacco use date assessed: 02/12/25 Dental Screening Dental Screen Date: 02/12/25 Did you have a dental visit in the last 12 months?: Yes Did you have a dental problem in the last 6 months where you did not have access to dental care?: No Was dental information given to patient?: Patient has dentist HPI HPI Comments History of Present Illness Details The patient is a 29-year-old female presenting with exacerbation of asthma symptoms. The symptoms began three weeks ago, initially perceived as a common cold, but persisted and worsened, leading to an urgent care visit. The patient reports shortness of breath, wheezing, and coughing, which have been persistent despite initial treatment with albuterol. The patient was tested for COVID-19 and influenza at urgent care, with negative results. She was diagnosed with asthma exacerbation likely triggered by allergies and was prescribed albuterol and allergy medications. The patient has a history of asthma but reports it has been years since the last significant episode. [facility] Medical History Morbid obesity Diarrhea Annual physical exam Obesity Depression Abdominal cramping Surgical History H/O tubal ligation History of ankle surgery Family History Mother IBS (irritable bowel syndrome) Prediabetes HTN (hypertension) Brother IBS (irritable bowel syndrome) Maternal Aunt Colon cancer Father Prediabetes HTN (hypertension) Maternal Grandmother Breast cancer Diabetes Social History Household Members: Children Housing: Apartment Alcohol intake: never Patient Tobacco Use Status: Never used Tobacco Tobacco use type: Cigarette e-Cigarette/Vaping Use: Never Used Second Hand Smoke Exposure: No service: No Current occupational status: employed Cognitive needs: No Hearing needs: No Vision needs: No Questionnaire Thrive Questionnaire Date Thrive assessed: 10/05/24 I am a: Patient What is your living situation today?: I have a steady place to live Within the past 12 months, did the food you bought not last and you didn't have the money to get more?: Never true Within the past 12 months, did you worry whether your food would run out before you got money to buy more?: Never true Do you have trouble paying for medicines?: No Do you have trouble getting transportation to medical appointments?: No Do you have trouble paying your heating and electricity bill?: No Do you have trouble taking care of your child, family member or friend?: No Do you have trouble with day-to-day activities such as bathing, preparing meals, shopping, managing finances, etc.?: No Are you currently unemployed and looking for a job?: No Are you interested in more education?: Yes Please select the resources that you would like help with: None Currently or been in a relationship where the following occur: No concerns r eported THRIVE Score: 0 MARIO-7 AMB Questionnaire MARIO-7 Date MARIO - 7 assessed: 10/12/24 Source: Developed by Drs. Eric Goodson, Marjorie Wilcox, Kelvin Sosa and colleagues, with an educational paulino from [employer]. Review of Systems Const Details: Not done. Physical exam (Primary Care) Vital Signs: Last Vital Signs Temp 97.3 F 02/12/25 10:22 Pulse 86 02/12/25 10:22 Resp 18 02/12/25 10:22 BP 140/98 H 02/12/25 10:22 Pulse Ox 96 02/12/25 10:22 Oxygen Delivery Method Room Air 02/12/25 10:22 BMI result Body Mass Index 55.0 Tobacco/Smoking Status: Tobacco use Status Tobacco use date assessed 02/12/25 02/12/25 10:36 Patient Tobacco Use Status Never used Tobacco 02/12/25 10:36 Tobacco use type Cigarette 02/12/25 10:36 e-Cigarette/Vaping Use Never Used 02/12/25 10:36 Thrive Assessment: Date of Thrive Assessment Date Thrive assessed 10/05/24 02/12/25 10:36 Currently or been in a relationship where the following occur: No concerns reported Const Other: Pertinent findings are in BOLD GENERAL APPEARANCE NAD, activity normal for age, well developed/ well nourished, no cyanosis, pallor, or diaphoresis. EYES lids/conjunctiva normal. EARS/NOSE/THROAT Mucous membranes moist, nares normal, lips/teeth normal uvula midline without oral pharyngeal erythema, exudate or swelling TMs normal bilaterally. No lymphangitis/lymphedema. HEAD/NECK normocephalic atraumatic, no facial trauma, neck is supple. RESPIRATORY respiratory effort normal, speaks in full sentences, no tripod position, no accessory muscle use. Positive for wheezing. CARDIAC Regular rate and rhythm, no edema. ABDOMINAL Soft, ND/NT. No evidence of fluid wave. No pulsatile masses on exam, rebound tenderness, Do sign or pain over Mcburney's point. MUSCLES/EXTREMITIES No abnormal range of motion, no swelling. SKIN Warm, pink and dry. No rashes, dermatoses, petechiae or lesions. NEUROLOGICAL Speech is clear and appropriate. Normal level of consciousness. Gait and coordination are normal. 5/5 strength in all extremities. PSYCH Normal mood and affect. Judgement/competence is appropriate Coding Level of Care Code Est Pt Level 3 (76817) Diagnoses Asthma exacerbation J45.901 Time Spent (min) 20 Assessment & Plan Assessment & Plan (1) Asthma exacerbation: Code(s): J45.901 - Unspecified asthma with (acute) exacerbation Category: Medical Plan: - Prescribed azithromycin 250 mg for 5 days, with a loading dose of 2 pills on the first day, followed by one pill daily. - Prescribed prednisone 20 mg for 5 days. - Advised to return if symptoms do not improve after 5 days. Plan I discussed with the patient the likely diagnosis of asthma exacerbation triggered by allergies. We reviewed the treatment plan, including azithromycin and prednisone, and the importance of returning if symptoms persist. Medications: New prednisone 20 mg PO DAILY 5 tabs 0RF azithromycin start on day 2 of therapy 250 mg PO DAILY 6 tabs 0RF 6 days
[2025-02-12 10:22] VITALS: BP 140/98; PULSE 86; RESP 18; TEMP 36.3; O2SAT 96; BMI 55.0
--- OUTSIDE RECORDS SUMMARY | 2025-02-12 12:09 | XMS_ITS | Clinical Summary ---
Author Organization [facility] ity Address [address] [place] [address] Care Team Providers Care Lens And Frames Prescription Clerk Name Role Phone Unavailable Primary Care Provider [...] Cervical Cancer Screening: P ap Smear 2018 HPV Vaccines (1 - 3-dose SCD M series) 2024 Depression Screening 04/29/2024 COVID-19 Vaccine ( - 2023-2 5 season) 2024 Influenza Vaccine (#1) 2024 RSV Immunization Adult Patie nts (1 - 1-dose 75+ series) 2072 HIB Vaccines Aged Out No longer eligi [...]
== END 2025-02-12 11:05 | disposition home or self-care (01) ==
LOC: HO.HMCH 10:16
PROVIDERS: PCP Internal Medicine; Visit Provider Internal Medicine
DX: J45.901 Unspecified asthma with (acute) exacerbation (principal)

== ENCOUNTER → 2025-02-12 10:15 | Outpatient (BNVA) | payer OTHER, SELFPAY | PROVIDERS: PCP Internal Medicine; Visit Provider Internal Medicine | DX: J45.901 Unspecified asthma with (acute) exacerbation (principal) | CPT/HCPCS: 99212 ==

== ENCOUNTER 2025-04-27 14:39 | Outpatient (AMB) | payer OTHER, SELFPAY ==
[2025-04-27 14:47] VITALS: BP 138/76; PULSE 103; O2SAT 98; BMI 56.2
--- NOTE | 2025-04-27 14:47 | MHC.PC.OV ---
Vital Signs 04/27/25 14:47 Height 5 ft 7 in Weight 359 lb BMI 56.2 BP 138/76 Blood Pressure Location Lt brachial Position Sitting Pulse 103 H Pulse Source Pulse Oximeter Pulse Oximetry (%) 98 Oxygen Delivery Method Room Air Intake Visit Reasons: annual exam Allergies phentermine Adverse Reaction (Intermediate, Unverified 04/27/25 15:25) hypertension Medication List - Last Reconciled 04/27/25 by Eron Rmasey MD albuterol sulfate 90 mcg/actuation (Ventolin HFA) 2 puffs inhalation Q6H PRN ascorbate calcium (vitamin C) 500 mg PO DAILY cholecalciferol (vitamin D3) 50 mcg PO DAILY 90 days cholestyramine (Cholestyramine Light) 8 grams PO BID clindamycin phosphate 1% topical QAM dicyclomine 20 mg PO QID 30 days ferrous sulfate (Feosol) 325 mg PO DAILY ketoconazole 2% topical mecobalamin (vitamin B12) 1,000 mcg PO DAILY phentermine 37.5 mg PO DAILY sodium,potassium,mag sulfates 17.5-3.13-1.6 gram (Suprep Bowel Prep Kit) 480 mL orally; FOR COLONOSCOPY PREP sumatriptan succinate (Imitrex) 50 mg PO QD prn CHRISTIANSON PRN; tretinoin 0.025% appl topical Tobacco use date assessed: 02/12/25 Dental Screening Dental Screen Date: 02/12/25 [facility] Medical History (Updated 04/27/25 @ 15:28 by Eron Ramsey MD) Annual physical exam Morbid obesity Diarrhea Obesity Depression Abdominal cramping Surgical History H/O tubal ligation History of ankle surgery Family History (Updated 04/27/25 @ 15:26 by Eron Ramsey MD) Mother IBS (irritable bowel syndrome) Prediabetes HTN (hypertension) Brother IBS (irritable bowel syndrome) Maternal Aunt Colon cancer Uterine cancer Father Prediabetes HTN (hypertension) Maternal Grandmother Breast cancer Diabetes Social History Household Members: Children Housing: Apartment Alcohol intake: never Patient Tobacco Use Status: Never used Tobacco Tobacco use type: Cigarette e-Cigarette/Vaping Use: Never Used Second Hand Smoke Exposure: No service: No Current occupational status: employed Cognitive needs: No Hearing needs: No Vision needs: No Questionnaire Thrive Questionnaire Date Thrive assessed: 10/05/24 I am a: Patient What is your living situation today?: I have a steady place to live Within the past 12 months, did the food you bought not last and you didn't have the money to get more?: Never true Within the past 12 months, did you worry whether your food would run out before you got money to buy more?: Never true Do you have trouble paying for medicines?: No Do you have trouble getting transportation to medical appointments?: No Do you have trouble paying your heating and electricity bill?: No Do you have trouble taking care of your child, family member or friend?: No Do you have trouble with day-to-day activities such as bathing, preparing meals, shopping, managing finances, etc.?: No Are you currently unemployed and looking for a job?: No Are you interested in more education?: Yes Currently or been in a relationship where the following occur: No concerns reported THRIVE Score: 0 MARIO-7 AMB Questionnaire MARIO-7 Date MARIO - 7 assessed: 10/12/24 Source: Developed by Drs. Eric Goodson, Marjorie Wilcox, Kelvin Sosa and colleagues, with an educational paulino from [employer]. Review of Systems Const Denies poor appetite and Denies weakness Eyes Denies no additional complaints ENT Reports Normal hearing present, Denies dizziness, Denies nasal congestion, Denies tinnitus and Denies sore throat Card Denies chest pain, Denies syncope, Denies rapid heart rate and Denies dyspnea Resp Denies cough and Denies dyspnea GI Denies change in stool character, Reports constipation, Denies diarrhea, Denies nausea and Denies vomiting Denies urinary frequency, Denies difficulty voiding and Denies dysuria Neuro Reports Normal hearing present, Denies confusion, Denies dizziness, Denies syncope and Denies weakness Psych Denies confusion Physical exam (Primary Care) Vital Signs: Last Vital Signs Pulse 103 H 04/27/25 14:47 BP 138/76 04/27/25 14:47 Pulse Ox 98 04/27/25 14:47 Oxygen Delivery Method Room Air 04/27/25 14:47 BMI result Body Mass Index 56.2 Tobacco/Smoking Status: Tobacco use Status Tobacco use date assessed 02/12/25 04/27/25 14:49 Patient Tobacco Use Status Never used Tobacco 04/27/25 14:49 Tobacco use type Cigarette 04/27/25 14:49 e-Cigarette/Vaping Use Never Used 04/27/25 14:49 Thrive Assessment: Date of Thrive Assessment Date Thrive assessed 10/05/24 04/27/25 14:49 Currently or been in a relationship where the following occur: No concerns reported Const General: No confusion Orientation/consciousness: No confusion HENMT Head: Yes normocephalic Ears: external ears normal and TM's normal bilaterally Face and sinus: Yes normal facial exam Mouth: moist mucous membranes Throat: Yes tonsils normal Eyes Conjunctivae: conjunctivae normal Pupils: Equal, round and reactive pupils present and Pupil accommodation reflex normal Direct Ophthalmoscopy: normal light reflex Neck Neck: No lymphadenopathy Thyroid: Thyroid normal Chest Chest palpation & inspection: normal inspection of the chest Resp Effort & Inspection: normal respiratory effort and no audible wheezes Auscultation: clear to auscultation bilaterally, no crackles, no wheezes and lung sounds not diminished Cardio Rate: regular rate Rhythm: regular rhythm Peripheral pulses: radial pulses present and dorsalis pedis present GI Palpation (GI): no masses Auscultation: normal bowel sounds and normoactive bowel sounds Rectal Exam - Female: deferred Skin General skin exam: no rashes or lesions noted Rashes: no rashes Neuro General: No confusion Cranial nerves: Yes Equal, round and reactive pupils present and Yes Normal hearing present Cognition (Neuro): normal cognition Gait exam (Neuro): Normal gait present Motor exam (neuro): 5/5 motor strength present throughout Deep tendon reflexes (DTR's): Right brachioradialis reflex intensity grade: 2+, Left brachioradialis reflex intensity grade: 2+, Right patellar reflex intensity grade: 2+ and Left patellar reflex intensity grade: 2+ Extrem General: No edema Office Procedures Flu Questionnaire Does the patient have a severe egg allergy?: No Does the patient have severe life threatening allergies?: No Does the patient have a fever or illness today?: No Has the patient ever had Guillain-[place] Syndrome?: No Has the patient ever had any past reaction to a flu shot?: No Immunizations Fluarix [id number] (PF) 45 mcg (15 mcg x 3)/0.5 mL IM syringe Performing Provider: Eron Ramsey MD Performing Location: [facility] Administered by: Amna Hudson CMA on 04/27/25 15:01 Dose Route Admin Location Dispensed Lot Number Expiration Date [employer] 0.5 mL IM Left Deltoid 0.5 mL [id number] 10/26/24 [id number] VIS Given Date VIS Provided VIS Publication Date 04/27/25 Single Vaccine 24 Eligibility Eligibility Date Funding Source Not [facility] Eligible 04/27/25 Private Coding Level of Care Code Est Pt Prev Care 18-39y([id number]) Diagnoses Annual physical exam Z00.00 Iron deficiency anemia D50.9 IBS (irritable bowel syndrome) K58.9 Morbid obesity E66.01 Bulimia (eating disorder) F50.2 Vitamin B12 deficiency E53.8 Asthma J45.909 Hypersomnia G47.10 Assessment & Plan Assessment & Plan (1) Annual physical exam: Code(s): Z00.00 - Encounter for general adult medical examination without abnormal findings Category: Medical Plan: Patient is advised to eat healthy, keep well hydrated, keep active and have adequate sleep. (2) Iron deficiency anemia: Code(s): D50.9 - Iron deficiency anemia, unspecified Category: Medical Plan: Patient has been placed on iron and vitamin-C and has been advised to take vitamin B12 (3) IBS (irritable bowel syndrome): Code(s): K58.9 - Irritable bowel syndrome, unspecified Category: Medical Plan: Keep well hydrated, eat healthy patient has been seen by Gastroenterology and has a colonoscopy pending patient is placed on dicyclomine (4) Morbid obesity: Code(s): E66.01 - Morbid (severe) obesity due to excess calories Category: Medical Plan: Diet and exercise (5) Bulimia (eating disorder): Code(s): F50.2 - Bulimia nervosa Category: Medical Plan: Continue to follow-up with counseling (6) Vitamin B12 deficiency: Code(s): E53.8 - Deficiency of other specified B group vitamins Category: Medical Plan: Vitamin B12 1000 mcg once a day (7) Asthma: Code(s): J45.909 - Unspecified asthma, uncomplicated Category: Medical Plan: Patient on albuterol inhaler and discussion about control (8) Hypersomnia: Code(s): G47.10 - Hypersomnia, unspecified Category: Medical Plan History of Present Illness The patient is a 30-year-old morbidly obese female with a BMI of 56 and weight of 359 pounds, who presents for a physical exam. Her past medical history includes migraine, asthma, generalized anxiety disorder, hypercholesterolemia, bulimia, and pseudotumor cerebri. She was last seen in September 2024. In January, she was seen for an asthma exacerbation on the and was treated with azithromycin and prednisolone, and on the she had an ER visit for low back pain, congestion, and cough, where she was prescribed ProAir and methocarbamol. She saw a tanyard worker in November for diarrhea and was diagnosed with irritable bowel syndrome, for which she was prescribed dicyclomine. An abdominal ultrasound in October was unremarkable, and a colonoscopy has been advised and is scheduled for May. Blood work from September 2024 revealed mild anemia with microcytosis, iron deficiency, and low vitamin B12. Her C-reactive protein and liver function tests were mildly elevated, while electrolytes, renal function, and blood sugar were normal. She has been taking iron, vitamin C, and vitamin B12 supplements. For weight management, the patient tried phentermine but had to discontinue it due to an increase in her blood pressure to 140/98 mmHg and feeling unwell. She has had difficulty contacting the weight management clinic for follow-up and alternative treatment options. She reports waking up short of breath, snoring since her weight gain, experiencing significant fatigue, and waking with a very dry mouth. She reports worsening migraines and has not seen her neurologist recently because she requires a new referral. She has a prescription for sumatriptan. Family history is notable for a grandmother with breast cancer and an aunt with both colon and uterine cancer. She does not drink alcohol or smoke cigarettes. Health Maintenance The patient has been advised to continue with her counseling. She will follow up in the office in approximately two weeks. Social History - Substance Use: The patient denies drinking alcohol and has never smoked. - Family Status: She has three children. - Nutrition and Weight Management: The patient has a history of morbid obesity and bulimia. - She attempted treatment with phentermine through a weight management clinic but stopped due to side effects. - She has expressed frustration with the weight management clinic and is opposed to bariatric surgery, preferring medication and lifestyle changes. - Functional Status: The patient reports significant fatigue and falls asleep while watching television. Review of Systems - General: Reports significant fatigue and feeling dizzy while taking phentermine. - Denies fever. - HEENT: Reports recent ear infections, a history of a ruptured eardrum, and having a scar and hole in one eardrum. - Reports xerostomia upon waking at night. - Denies problems with swallowing. - Reports good hearing. - Neurological: Reports experiencing really bad migraines. - Denies syncope. - Respiratory: Reports waking with shortness of breath and new onset of snoring since gaining weight. - Reports recent congestion and cough. - Cardiovascular: Reports elevated blood pressure (140/98 mmHg) while on phentermine. - Denies chest pain and heartburn. - Gastrointestinal: Reports a history of diarrhea. - Denies nausea or vomiting. - Genitourinary: Reports nocturia, waking up twice per night to urinate. - Denies other problems with urination. - Musculoskeletal: Reports a painful lump on the back of her neck. - Reports a history of low back pain. Physical Exam General: Cooperative, morbidly obese, comfortable, no acute distress Orientation: Patient oriented x3 Limitations: No limitations Head: Normal to inspection Ears: Hearing grossly normal bilaterally, scar and hole in the eardrum noted Nose: Normal external nose present Face and sinus: Normal facial exam Eyes: Appearance normal, both eyes and all related structures Neck: Normal visual inspection, Yes full ROM, lump noted on the back of the neck Respiratory: Normal respiratory effort and able to speak in complete sentences. Clear to auscultation bilaterally Cardiovascular: Regular rate and rhythm. Normal S1 and S2 GI: Normal to inspection. Soft to palpation and nontender Skin: No rashes or lesions noted Neuro: Patient oriented x3 Extremities: Normal to inspection Results - Labs (October 07, 2024): - Complete Blood Count: Showed mild anemia with a hemoglobin of 11.9 and microcytosis with an MCV of 79.7. - Iron studies: Revealed iron deficiency. - Vitamin B12: Level was low. - Comprehensive Metabolic Panel: Electrolytes, renal function, and blood sugar were normal. - Liver function tests were mildly elevated. - Inflammatory markers: C-reactive protein was mildly elevated. - Imaging: - Abdominal ultrasound (October): Unremarkable. - Other diagnostics: - Allergy testing (September 2024): Negative. Plan Patient was informed and verbally consented to the use of an ambient scribe for clinic note documentation during this visit. 1. Morbid Obesity The patient previously tried phentermine for weight management but stopped due to hypertension. She has had difficulty contacting the weight management clinic since. If she is unable to get a response from them, a prescription for an injectable weight loss medication will be provided. The patient was instructed to follow up for dose titration if she starts the injections. A referral for a sleep study was placed to evaluate for sleep apnea, given her symptoms of snoring, fatigue, and waking up short of breath. To investigate the posterior neck lump ([place] hump), a fasting blood test including a cortisol level will be ordered. Reinforced the importance of diet, exercise, and hydration. 2. Migraine The patient reports worsening migraines. A referral to [facility] will be renewed, and a refill for sumatriptan will be sent to the pharmacy. It was noted that diagnosing and treating potential sleep apnea could also help alleviate her headaches. 3. Iron Deficiency Anemia And Vitamin B12 Deficiency The patient is currently taking iron with vitamin C and vitamin B12 1000 mcg daily. Fasting blood work has been ordered to follow up on her anemia and assess the efficacy of her supplementation. 4. Asthma The patient reports infrequent use of her albuterol inhaler, last used during an illness in January. She will continue to use her albuterol inhaler as needed. She was advised that a controller inhaler would be considered if her use of the rescue inhaler increases. A pneumonia vaccine is recommended at a future visit due to her asthma. 5. Irritable Bowel Syndrome The patient was previously evaluated by gastroenterology and has a colonoscopy pending in May. She will continue taking dicyclomine as needed for abdominal symptoms. Discussion Notes I reviewed the patient's extensive medical history, including morbid obesity, migraines, asthma, and recent lab findings of anemia and vitamin B12 deficiency. We discussed her weight management, noting the adverse effects she had with phentermine (hypertension). I advised her to re-contact her weight retail management keyholder but offered to prescribe an injectable medication if she remains unable to get a response, explaining the need for close follow-up and dose titration every three weeks. I explained that the lump on her neck is likely a [place] hump related to fat redistribution and that I would order a cortisol test to investigate further. Regarding her worsening migraines, I agreed to renew her neurology referral and refill her sumatriptan. I ordered a sleep study to investigate her symptoms of snoring, fatigue, and nocturnal shortness of breath, explaining that sleep apnea could be a contributor to her fatigue and migraines. I ordered follow-up fasting blood work to monitor her anemia and B12 levels. We discussed her asthma, and I confirmed that her current as-needed use of a rescue inhaler is appropriate, but that a controller medication would be considered if her usage increases. I recommended she receive a pneumonia vaccine in the future because of her asthma. I scheduled a follow-up visit in two weeks. Patient Instructions - Continue taking your iron, vitamin C, and vitamin B12 supplements as prescribed. - Please complete the fasting blood test that was ordered to check your blood counts, vitamin levels, and cortisol. - A referral has been sent for a sleep study to check for sleep apnea; please schedule and complete this test. - We have renewed your referral to the neurology clinic for your migraines. - A refill for your sumatriptan has been sent to your pharmacy. - Attempt to contact your weight retail management keyholder. - If you cannot reach them, let me know so I can prescribe the weight loss injection. - If you start the injection, you must message me after three weeks to adjust the dose if you are not losing weight. - Continue to use your albuterol (ProAir) inhaler as needed for asthma symptoms. - Remember to proceed with your scheduled colonoscopy in May. - Continue to focus on a healthy diet, regular exercise, and staying well-hydrated. - Follow up in the office in two weeks. Orders: Orders Influenza [id number] Immunization Today Z23 - Encounter for immunization Complete Blood Count Auto Diff Today D50.9 - Iron deficiency anemia, unspecified IRON PROFILE Today D50.9 - Iron deficiency anemia, unspecified Lipid Panel Today D50.9 - Iron deficiency anemia, unspecified, E78.00 - Pure hypercholesterolemia, unspecified Thyroid Stimulating Hormone Today D50.9 - Iron deficiency anemia, unspecified UA CC w/rflx Micro + Cult Today D50.9 - Iron deficiency anemia, unspecified, R30.0 - Dysuria Reticulocyte Count Today D50.9 - Iron deficiency anemia, unspecified Comprehensive Met. Panel Today D50.9 - Iron deficiency anemia, unspecified Ferritin Today D50.9 - Iron deficiency anemia, unspecified Free T4 (Free Thyroxine) Today D50.9 - Iron deficiency anemia, unspecified Vitamin B12 and Folate Today D50.9 - Iron deficiency anemia, unspecified RT home sleep study Today G47.10 - Hypersomnia, unspecified Cortisol Random Today E66.01 - Morbid (severe) obesity due to excess calories Referrals Neurology Referral G43.909 - Migraine, unspecified, not intractable, without status migrainosus Medications: New tirzepatide (Mounjaro) for 4 weeks 2.5 mg (0.5 mL) subcut QWEEK 2 mL 3RF E66.01 - Morbid (severe) obesity due to excess calories, Z68.43 - Body mass index [BMI] 50.0-59.9, adult Refilled sumatriptan succinate (Imitrex) 50 mg PO QD prn CHRISTIANSON PRN; 10 tabs 2RF migraine headache G43.909 - Migraine, unspecified, not intractable, without status migrainosus Discontinued phentermine must administer 30 minutes before or 1-2 hours after breakfast Discontinued Reason: Patient Refused 37.5 mg PO DAILY 30 caps 0RF E66.01 - Morbid (severe) obesity due to excess calories
--- OUTSIDE RECORDS SUMMARY | 2025-04-27 18:19 | XMS_ITS | Clinical Summary ---
Author Organization [facility] ity Address [address] [place] [address] Care Team Providers Care Parcel Carrier Name Role Phone Unavailable Primary Care Provider [...] Depression Screening 04/29/2024 COVID-19 Vaccine ( - 2024-2 6 season) 2024 Influenza Vaccine (#1) 2024 RSV [...]
== END 2025-04-27 15:44 | disposition home or self-care (01) ==
LOC: HO.HMCH 14:39
PROVIDERS: PCP Internal Medicine; Visit Provider Internal Medicine
DX: Z00.00 Encounter for general adult medical examination without abnormal findings (principal); D50.9 Iron deficiency anemia, unspecified; K58.9 Irritable bowel syndrome, unspecified; E53.8 Deficiency of other specified B group vitamins; Z23 Encounter for immunization

== ENCOUNTER → 2025-04-27 14:39 | Outpatient (BNVA) | payer OTHER, SELFPAY | PROVIDERS: PCP Internal Medicine; Visit Provider Internal Medicine | DX: Z23 Encounter for immunization (principal); Z00.00 Encounter for general adult medical examination without abnormal findings; D50.9 Iron deficiency anemia, unspecified; K58.9 Irritable bowel syndrome, unspecified; E66.01 Morbid (severe) obesity due to excess calories; F50.20 Bulimia nervosa, unspecified; E53.8 Deficiency of other specified B group vitamins; J45.909 Unspecified asthma, uncomplicated; G47.10 Hypersomnia, unspecified | CPT/HCPCS: 90471; 90656; 99395 ==